=== PATIENT | male | born 1965 | race Caucasian/White ===

== ENCOUNTER 2024-03-09 10:13 | Inpatient (IN) | payer OTHER, SELFPAY ==
[2024-03-09] VITALS (7 sets, daily range): BP systolic 105–148; BP diastolic 62–91; PULSE 84–112; RESP 14–20; TEMP 36.1–36.7; O2SAT 96–100; BMI 30.8; BMI 31.4
[2024-03-09 11:20] LABS: Absolute Lymphocyte Count 1.07 X10^3/uL (0.83-4.51); Absolute Neutrophil Count 12.4 X10^3/uL (2.0-7.7); Basophil# 0.04 X10^3/uL; Basophil% 0.3 % (0-1); Eosinophil# 0.02 X10^3/uL; Eosinophils% 0.1 % (0-5); Hematocrit 43.9 % (40-54); Hemoglobin 15.1 g/dL (13.0-16.5); Lymphocyte # 1.07 X10^3/ul (0.83-4.51); Lymphocyte % 7.5 % (19-41); Mean Corp Hgb Conc 34.4 g/dL (32-36); Mean Corpuscular Hgb 30.5 pg (27.0-32.0); Mean Corpuscular Volume 88.7 fL (80-94); Mean Platelet Vol. 11.1 fl (6.2-12.0); Monocyte# 0.77 X10^3/uL; Monocyte% 5.4 % (0-10); NRBC Flagged by Analyzer 0 % (0-5); Neutrophil # 12.39 X10^3/uL (2.7-7.7); Neutrophil % 86.4 % (47-70); Platelet Count 263 K/mm3 (150-450); RBC Distribution Width SD 38.9 fl (35.1-43.9); Red Blood Count 4.95 M/mm3 (4.6-6.2); White Blood Count 14.3 K/mm3 (4.4-11.0)
--- NOTE | 2024-03-09 11:41 | RAD_ITS ---
STUDY: X-RAY - LEFT FOOT CLINICAL: Male, 58 years old. Great toe infection. TECHNIQUE: 3 views of the left foot. COMPARISON: None. FINDINGS: Intact talus, calcaneus, and tarsal bones. There is a tiny posterior calcaneal tuberosity spur. Normal visualized subtalar, talonavicular, calcaneocuboid, tarsal and tarsometatarsal articulations. Normal metatarsi. Normal metatarsophalangeal joint of the great toe. Normal tibial and fibular sesamoid bones. Normal interphalangeal joint of the great toe. Normal phalanges of the great toe. Normal second through fifth metatarsophalangeal joints. Normal interphalangeal joints and phalanges of the lesser toes. The soft tissue structures are unremarkable. There is no demonstrated fracture. RAD/Foot min 3 Views IMPRESSION: Tiny posterior calcaneal tuberosity spur. Electronically Signed: Javier See MD at 12:31 EDT ,
[2024-03-09 11:42] LABS: Anion Gap 5 (5-15); BUN 16 mg/dL (7-18); BUN/Creat Ratio 11.7 RATIO (10-20); Calcium,Total 9.6 mg/dL (8.5-10.1); Chloride 94 mmol/L (98-107); Creatinine, Serum 1.37 mg/dL (0.70-1.30); EST Glomerular Filtration Rate 57 mL/min (>60); Est Glom Filt Rate - Afr Amer 69 mL/min (>60); Estimated Creatinine Clearance 71.74 ml/min; Glucose 651 mg/dL (74-106); Potassium 4.4 mmol/L (3.5-5.1); Sodium Level 128 mmol/L (136-145)
--- NOTE | 2024-03-09 11:42 | EX.ED.DYSGE1 ---
HPI History of Present Illness Chief Complaint: Cellulitis Detail of Chief Complaint: Cellulitis to left leg Informant: patient Narrative Narrative: Patient presents to the emergency department complaint of redness and swelling to his left leg. Patient tells me that 2 months ago he came home from work and noted some blood on his sock and when he pulled his sock off his toenail was barely hanging on so he twisted it and pulled it off. 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 Saucedo for him and keep it clean. About a week ago he started noticing some redness up the foot and up the leg. He was advised to come in and get evaluated. Patient tells me that he has not seen a doctor in over 20 years. 20 years ago he was told he was diabetic and doctor wanted to put him on insulin and he never went back. Denies any other medical history. He has had some chills but no fever. [facility] Home Medications NK 03/09/24 [History Last Taken Unknown] Allergy/AdvReac Type Severity Reaction Status Date / Time No Known Allergies Allergy Verified 03/09/24 10:14 Social History Smoking Status: Never smoker ROS ROS ED Review of Systems ROS Unobtainable: other Constitutional Constitutional ED: Reports lethargy; Denies chills, fever(s), sweats or weight loss Eyes Eyes: Denies blurry vision, change in vision or diplopia ENT ENT ED: Denies rhinorrhea or sore throat Cardiovascular Cardiovascular: Denies chest pain, orthopnea or racing heartbeat Respiratory/Chest Respiratory/Chest: Denies cough, dyspnea, dyspnea on exertion, orthopnea or sputum Gastrointestinal Gastrointestinal: Denies abdominal pain, diarrhea, nausea or vomiting Genitourinary Genitourinary ED: Denies dysuria, hematuria or urinary frequency Musculoskeletal Musculoskeletal: Reports other Details: Right foot redness and swelling ; Denies arthralgias, back pain, myalgias or neck pain Integumentary Denies abscess, Abrasions or rash Neurologic Neurologic: Denies headache(s) or weakness Psychiatric Psychiatric: Denies anxiety, depression or suicidal thoughts Endocrine Endocrinology: Denies polydipsia, polyphagia or polyuria Hematologic/Lymphatic Hematologic/Lymphatic: Denies easy bleeding, easy bruising or lymphadenopathy Allergic/Immunologic Allergic/Immunologic ED: Denies mouth swelling, tongue swelling or urticaria EXAM Physical Exam Const Vital Signs: 03/09/24 10:15 03/09/24 11:16 Temperature 97 F L 97.6 F L Temperature Source Temporal Oral Pulse Rate 112 H 89 Respiratory Rate 18 20 H Blood Pressure 137/77 H 148/67 H Blood Pressure Mean 97 94 Pulse Ox 98 97 Oxygen Delivery Method Room Air Room Air Positive well nourished and well developed General Appearance ED: well developed and NAD HEENT Reports TM's clear and moist mucous membranes normocephalic and atraumatic; Negative for trauma or tenderness Tympanic Membrane ED: Yes TM's clear Eyes PERRL and EOMs intact bilaterally General Eye ED: Negative for pale conjunctiva or scleral icterus Neck no lymphadenopathy, supple and no JVD General: Negative for tenderness Chest Wall inspection of chest normal and palpation of chest normal Chest: Negative for tenderness Resp normal respiratory effort and clear to auscultation bilaterally Effort and Inspection: Negative for respiratory distress or pain with movement Auscultation: Negative for rhonchi, wheezes or diminished lung sounds Cardio regular rate, regular rhythm, S1 normal heart sound, S2 normal heart sound and no murmurs Peripheral Pulses: pulses 2+ throughout GI normal to inspection, nondistended, normoactive bowel sounds, soft to palpation, non-tender, non-distended and no masses Back/Spine no CVA tenderness and no thoracic nor lumbar tenderness Extremity Extremity Narrative: Right lower extremity-patient has a missing left great toenail. He has diffuse erythema to the toe with tenderness to palpation. No significant drainage noted. Does have cellulitic changes to the dorsum of the foot and extending up the anterior rhodes. General Extremety ED: Negative for edema General Extremity: Negative for edema Neuro oriented x3, CN's II-XII intact bilaterally, no sensory deficits noted and gait normal Sensorium / Orientation: awake, alert, oriented to person, oriented to place and oriented to time Motor Exam: strength 5/5 throughout and strength abnormal Psych mental status grossly normal Skin no rashes or lesions noted and no wounds MDM MDM MDM Narrative Medical decision making narrative: Patient presents to the emergency department with redness and swelling to the left great toe and lower extremity. Thinks he might be diabetic. IV line established. CBC with differential obtained for white count of 14.3 with hemoglobin 15 and platelet count of 263. Patient was started on Zosyn and vancomycin IV empirically. I ordered an x-ray. Sed rate and CRP also ordered and pending. Patient has an elevated glucose of 651. Sodium 128. BUN 16 and creatinine 1.37. C-reactive protein was elevated at 67.6. Sed rate was normal at 8. X-ray of the left foot obtained showed no evidence for osteomyelitis or gas within the tissues. Patient started on insulin subcu I gave him 20 units regular. Case discussed with hospitalist will evaluate patient for admission. Lab Data Attestation: I reviewed the patient's lab results. Labs: Laboratory Results - last 24 hr 03/09/24 11:11 WBC 14.3 H RBC 4.95 Hgb 15.1 Hct 43.9 MCV 88.7 MCH 30.5 MCHC 34.4 RDW Std Deviation 38.9 RDW Coeff of [place] 12.0 Plt Count 263 MPV 11.1 Immature Gran % (Auto) 0.300 Neut % (Auto) 86.4 H Lymph % (Auto) 7.5 L [place] % (Auto) 5.4 Eos % (Auto) 0.1 Baso % (Auto) 0.3 Absolute Neuts (auto) 12.4 H Absolute Lymphs (auto) 1.07 Nucleated RBC % 0 ESR 8 Sodium 128 L Potassium 4.4 Chloride 94 L Carbon Dioxide 29.0 Anion Gap 5 BUN 16 Creatinine 1.37 H Estim Creat Clear Calc 71.74 Est GFR (MDRD) Af Amer 69 Est GFR (MDRD) Non-Af 57 L BUN/Creatinine Ratio 11.7 Glucose 651 H* Calcium 9.6 C-React Prot Ext Range 67.60 H Radiography Diagnostic Testing: Clinical Impression(s) from Imaging Studies Foot X-Ray 03/09/24 11:41 IMPRESSION: Tiny posterior calcaneal tuberosity spur. Electronically Signed: Javier See MD at 12:31 EDT , Three-view x-rays of the left foot obtained interpreted by myself as no evidence of fracture dislocation or evidence of osteomyelitis or gas in tissues. Radiology in agreement felt there was a posterior calcaneal tuberosity spur. Discharge Plan Triage Chief Complaint: Cellulitis ED Provider: Reba Soto Dx/Rx/DC Orders Clinical Impression: Cellulitis, Hyperglycemia Prescriptions: No Action NK Primary Care Provider: Care Physician,No Primary Referrals: Angelito Mitchell MD [Med Staff - Batting Machine Operator] - Disposition Disposition: Acute Care Hospital [facility]
[2024-03-09] MEDS: Insulin Lispro 100 UNIT/ML INSULN.PEN 20 UNIT SC (12:05)
[2024-03-09 12:14] LABS: Erythrocyte Sedimentation Rate 8 mm/hr (0-20)
[2024-03-09] MEDS: Piperacil/Tazobactam 4.5 GM in 0.9% Normal Saline (100mL MB+) 100 ML IV (13:39)
[2024-03-09] MEDS: Vancomycin HCl 1,500 MG in 0.9% Normal Saline (500mL Bag) 500 ML 250 MG IV (14:24)
[2024-03-09 15:56] LABS: Bedside Glucose 189 mg/dL (74-106)
[2024-03-09] MEDS: 0.9% Normal Saline (1000mL) 1,000 ML 100 ML IV (17:07)
[2024-03-09 17:29] LABS: Bedside Glucose 142 mg/dL (74-106)
[2024-03-09] MEDS: Insulin Lispro 100 UNIT/ML INSULN.PEN 12 UNIT SC (18:03)
[2024-03-09] MEDS: Insulin Glargine-YFGN 100 UNIT/ML Pen 20 UNIT SC ×2 (18:04→21:07)
--- NOTE | 2024-03-09 19:48 | HP.PCM.HOS_ITS ---
HPI - General General Date of Admission: 03/09/24 Date of Service: 03/09/24 Chief Complaint: Left foot and lower leg redness HPI Narrative LIAN FRYE, is a 58 M who presents to the emergency room at [facility] with complaints of redness and swelling to his left great toe, his left foot and redness streaking up the left lower leg. 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 Patient does not follow-up regularly with a physician, he was diagnosed with diabetes years ago but chose not to go on any medication. Workup in the emergency room included a CBC which showed an elevated white blood cell count of 14.3, sodium was low at 128, creatinine was elevated at 1.37, glucose was elevated at 651, and foot x-ray showed a calcaneal tuberosity spur but no other abnormality. Patient will be admitted to [facility] for cellulitis of the left great toe/foot, he will be treated with IV Zosyn, I will have the wound nurse look at his toe wound tomorrow, I do not anticipate having podiatry involved in the case at this time. [facility] Medical History (Updated 03/09/24 @ 16:15 by Dannielle River) Alcohol abuse Diabetes Dyspnea History of stress test Home Medications NK 03/09/24 [History Last Taken Unknown] Allergy/AdvReac Type Severity Reaction Status Date / Time No Known Allergies Allergy Verified 03/09/24 10:14 Social History Smoking Status: Never smoker ROS ROS Narrative Patient complains of left great toe redness and swelling over the last several days along with redness of the left foot over its dorsum and streaking redness up into the left lower leg. Constitutional Constitutional: Denies anorexia, change in weight, chills, fatigue, fever(s), night sweats or weakness Eyes Eyes: Denies blurry vision, change in vision, discharge from eye(s) or eye pain Cardiovascular Cardiovascular: Denies chest pain, claudication, edema or palpitations Respiratory/Chest Respiratory/Chest: Denies cough, hemoptysis, shortness of breath at rest or shortness of breath with exertion Gastrointestinal Gastrointestinal: Denies abdominal pain, constipation, diarrhea, hematemesis, hematochezia, melena, nausea or vomiting Genitourinary Genitourinary: Denies dysuria, hematuria, urinary frequency, urinary hesitancy, urinary incontinence or urinary urgency Musculoskeletal Musculoskeletal: Denies back pain, joint pain, joint stiffness, joint swelling, myalgias or neck pain Neurologic Neurologic: Denies abnormal gait, abnormal speech, dizziness, focal weakness, headache(s), loss of vision, numbness, other visual disturbances, paresthesias, syncope or tingling Psychiatric Psychiatric: Denies anxiety, cognitive impairment, depression, irritability, mood swings or suicidal ideation Endocrine Endocrinology: Denies change in body appearance, cold intolerance, excessive sweating, heat intolerance, polydipsia or polyuria Hematologic/Lymphatic Hematologic/Lymphatic: Denies none, anemia, easy bleeding, easy bruising or lymphadenopathy Allergic/Immunologic Allergic/Immunologic: Denies rhinitis, urticaria, eczemia or asthma Vital Signs Vital Signs Vital Signs: 03/09/24 10:15 03/09/24 11:16 03/09/24 13:43 Temperature 97 F L 97.6 F L 98.1 F Temperature Source Temporal Oral Temporal Pulse Rate 112 H 89 84 Respiratory Rate 18 20 H 18 Respiratory Effort Respiratory Depth Respiratory Pattern Blood Pressure 137/77 H 148/67 H 112/64 Blood Pressure Mean 97 94 80 Blood Pressure Source Blood Pressure Position Blood Pressure Location Pulse Ox 98 97 96 Oxygen Delivery Method Room Air Room Air Room Air 03/09/24 14:24 03/09/24 15:00 03/09/24 17:00 Temperature 98.1 F 98.0 F 98.1 F Temperature Source Temporal Oral Pulse Rate 92 91 93 Respiratory Rate 15 15 14 Respiratory Effort Respiratory Depth Respiratory Pattern Blood Pressure 138/62 H 105/91 H 136/81 H Blood Pressure Mean 87 95 99 Blood Pressure Source Monitor Blood Pressure Position Sitting Blood Pressure Location Left Arm Pulse Ox 99 99 100 Oxygen Delivery Method Room Air Room Air 03/09/24 16:03 Temperature Temperature Source Pulse Rate Respiratory Rate Respiratory Effort Normal Respiratory Depth Normal Respiratory Pattern Normal Blood Pressure Blood Pressure Mean Blood Pressure Source Blood Pressure Position Blood Pressure Location Pulse Ox Oxygen Delivery Method Room Air Weight Weight: 102.115 kg Body Mass Index (BMI) 31.4 Physical Exam Const alert, oriented x3, no apparent distress, average body habitus and healthy appearing General Appearance: cooperative, well kempt and well developed Orientation / Consciousness: awake, oriented to person, oriented to place and oriented to time HEENT normocephalic, head/scalp atraumatic and moist oral mucous membranes Eyes PERRL, EOMs intact bilaterally and conjunctivae normal Neck supple, no JVD, thyroid normal and no carotid bruits General: trachea midline Resp normal respiratory effort, no retractions, no use of accessory muscles and clear to auscultation bilaterally Auscultation: Negative for rales, rhonchi or wheezes Cardio S1 normal heart sound, S2 normal heart sound, no murmurs, no rub and no gallops Cardio Narrative: Heart rate and rhythm is regularly irregular GI normal to inspection, nondistended, normoactive bowel sounds, soft to palpation, non-tender and non-distended Extremity Extremity Narrative: There are some chronic vascular changes of the left lower leg noted over the rhodes area, there is generalized tenderness over the back of the left lower leg, there is some edema of the dorsum of the left foot noted, the left great toe was not examined due to surgical dressing which was in place. Neuro oriented x3, CN's II-XII intact bilaterally, moves all extremities, no focal motor deficits and no sensory deficits noted Sensorium / Orientation: awake and alert Speech: speech normal Psych affect normal Results Lab / Micro Data 03/09/24 11:11 03/09/24 11:11 Labs: Laboratory Results - last 24 hr 03/09/24 11:11: WBC 14.3 H, RBC 4.95, Hgb 15.1, Hct 43.9, MCV 88.7, MCH 30.5, MCHC 34.4, RDW Std Deviation 38.9, RDW Coeff of [place]on 12.0, Plt Count 263, MPV 11.1, Immature Gran % (Auto) 0.300, Neut % (Auto) 86.4 H, Lymph % (Auto) 7.5 L, [place] % (Auto) 5.4, Eos % (Auto) 0.1, Baso % (Auto) 0.3, Absolute Neuts (auto) 12.4 H, Absolute Lymphs (auto) 1.07, Nucleated RBC % 0, ESR 8, Sodium 128 L, Potassium 4.4, Chloride 94 L, Carbon Dioxide 29.0, Anion Gap 5, BUN 16, Creatinine 1.37 H, Estim Creat Clear Calc 71.74, Est GFR (MDRD) Af Amer 69, Est GFR (MDRD) Non-Af 57 L, BUN/Creatinine Ratio 11.7, Glucose 651 H*, Calcium 9.6, C-React Prot Ext Range 67.60 H 03/09/24 15:37: POC Glucose 189 H 03/09/24 16:55: POC Glucose 142 H Imaging Radiology Impression Foot X-Ray 03/09/24 11:41 IMPRESSION: Tiny posterior calcaneal tuberosity spur. Electronically Signed: Javier See MD at 12:31 EDT , Assessment & Plan Assessment/Plan (1) Cellulitis: PLAN: Plan 1. Cellulitis of the left great toe/foot with extension into the left lower leg-patient will be maintained on IV Zosyn, he was admitted to [facility] 3, he will be seen by the wound care nurse #2 uncontrolled type 2 diabetes due to noncompliance with medical regimen- patient was placed on insulin, he will be seen by the dietitian, lipid profile was ordered for tomorrow morning #3 cardiac arrhythmia-on auscultation of the patient's heart today he has what appears to this examiner to be either atrial bigeminy or bigeminy, I will place him on telemetry and monitor the patient for now. #4 elevated creatinine probably secondary to dehydration-patient will receive fluids and labs will be rechecked tomorrow Total clinical time spent by myself addressing the patient's medical issues, reviewing all the data, and collaborating with patient's care team: 75 minutes Charges/Coding Visit Charges Inpatient E&M: 25579 Init Hosp L3
[2024-03-09] MEDS: Insulin Lispro 100 UNIT/ML INSULN.PEN SC (21:07)
[2024-03-09] MEDS: Piperacil/Tazobactam 3.375 GM in 0.9% Normal Saline (50mL MB+) 50 ML IV (21:07)
[2024-03-09] MEDS: Heparin Injection (Vial) 5,000 UNIT/ML VIAL 5000 UNIT SC (21:08)
[2024-03-09 22:01] LABS: Bedside Glucose 221 mg/dL (74-106)
[2024-03-10] MEDS: 0.9% Normal Saline (1000mL) 1,000 ML 100 ML IV ×3 (02:26→23:42)
[2024-03-10 03:07] VITALS: BP 128/59; PULSE 84; RESP 18; TEMP 37; O2SAT 96
[2024-03-10] MEDS: Piperacil/Tazobactam 3.375 GM in 0.9% Normal Saline (50mL MB+) 50 ML IV ×3 (07:09→21:02)
[2024-03-10 07:19] LABS: Absolute Lymphocyte Count 1.69 X10^3/uL (0.83-4.51); Absolute Neutrophil Count 8.4 X10^3/uL (2.0-7.7); Basophil# 0.03 X10^3/uL; Basophil% 0.3 % (0-1); Eosinophil# 0.16 X10^3/uL; Eosinophils% 1.4 % (0-5); Hematocrit 41.8 % (40-54); Hemoglobin 14.4 g/dL (13.0-16.5); Lymphocyte # 1.69 X10^3/ul (0.83-4.51); Mean Corp Hgb Conc 34.4 g/dL (32-36); Mean Corpuscular Hgb 30.3 pg (27.0-32.0); Mean Corpuscular Volume 87.8 fL (80-94); Mean Platelet Vol. 11.5 fl (6.2-12.0); Monocyte# 0.92 X10^3/uL; Monocyte% 8.2 % (0-10); NRBC Flagged by Analyzer 0 % (0-5); Neutrophil # 8.44 X10^3/uL (2.7-7.7); Neutrophil % 74.8 % (47-70); Platelet Count 255 K/mm3 (150-450); RBC Distribution Width CV 11.9 % (11.6-14.6); RBC Distribution Width SD 38.5 fl (35.1-43.9); Red Blood Count 4.76 M/mm3 (4.6-6.2); White Blood Count 11.3 K/mm3 (4.4-11.0)
[2024-03-10 07:50] LABS: Anion Gap 6 (5-15); BUN 20 mg/dL (7-18); BUN/Creat Ratio 14.5 RATIO (10-20); Calcium,Total 8.8 mg/dL (8.5-10.1); Chloride 106 mmol/L (98-107); Cholesterol 213 mg/dL (200); Creatinine, Serum 1.38 mg/dL (0.70-1.30); EST Glomerular Filtration Rate 56 mL/min (>60); Est Glom Filt Rate - Afr Amer 68 mL/min (>60); Estimated Creatinine Clearance 71.86 ml/min; Glucose 153 mg/dL (74-106); High Density Lipoprotein 58 mg/dL; Potassium 3.7 mmol/L (3.5-5.1); Sodium Level 138 mmol/L (136-145); Triglycerides 102 mg/dL; Very Low Density Lipoprotein 20 mg/dL (5-40)
[2024-03-10 08:00] VITALS: BP 124/78; PULSE 100; RESP 12; TEMP 36.6; O2SAT 98
[2024-03-10 08:05] LABS: Bedside Glucose 162 mg/dL (74-106)
--- NOTE | 2024-03-10 08:37 | WOUNDNOTE ---
wound photo: left great toe
[2024-03-10] MEDS: Insulin Glargine-YFGN 100 UNIT/ML Pen 20 UNIT SC ×2 (08:46→20:59)
[2024-03-10] MEDS: Insulin Lispro 100 UNIT/ML INSULN.PEN SC (08:47)
[2024-03-10] MEDS: Insulin Lispro 100 UNIT/ML INSULN.PEN 12 UNIT SC ×3 (08:47→16:19)
[2024-03-10] MEDS: Heparin Injection (Vial) 5,000 UNIT/ML VIAL 5000 UNIT SC ×2 (08:48→20:54)
--- NOTE | 2024-03-10 08:57 | MRI_ITS ---
STUDY: MRI LEFT FOREFOOT WITHOUT CONTRAST REASON FOR EXAM: Male, 58 years old. Pulled off 1st digit nail x 3 weeks, great toe appears red and swollen. Evaluate for left foot osteomyelitis. TECHNIQUE: Standardized fat and water weighted pulse sequences were obtained in all 3 orthogonal planes. COMPARISON: Left foot radiographs dated 03/09/2024. FINDINGS: There is a wound at the nailbed of the great toe. There is geographic and curvilinear signal abnormality at the base of the distal phalanx of the great toe (coronal T2 series 11 image 12; sagittal STIR series 10 image 6), concerning for nondisplaced fracture versus avascular necrosis. There is intermediate T1 and increased STIR marrow signal in the middle and distal phalanges of the great toe, concerning for marrow stress edema versus early developing osteomyelitis. Normal bone marrow of the remainder of the phalanges, metatarsals, and and visualized distal tarsal row, without fracture, periostitis, erosions or reactive bone edema. Normal sesamoids without sesamoiditis, fracture or avascular necrosis. Normal joint spaces, without effusions. There are no extraarticular fluid collections. Normal visualized Lisfranc joints and normal Lisfranc ligament. Normal intermetatarsal spaces without intermetatarsal ([place]) neuroma or bursitis. Normal visualized extensor digitorum longus, extensor hallucis longus, flexor digitorum brevis and flexor hallucis longus tendons. Normal visualized plantar fascia without fasciitis, fibromatosis or tear. Normal intrinsic muscles of the foot, without soft tissue masses or evidence of denervation atrophy. There is moderate subcutaneous soft tissue edema along the dorsal aspect of the foot. MRI/Lower Ext/No Jt/w/o IMPRESSION: Great toe nailbed wound. Geographic and curvilinear signal abnormality at the base of the distal phalanx of the great toe, concerning for nondisplaced fracture versus avascular necrosis. Intermediate T1 and increased STIR marrow signal in the middle and distal phalanges of the great toe, concerning for marrow stress edema versus early developing osteomyelitis. Continued follow-up is advised. Moderate subcutaneous soft tissue edema along the dorsal aspect of the foot. Electronically Signed: Javier See MD at 15:55 EDT ,
--- NOTE | 2024-03-10 08:57 | ART_ITS ---
Reason For Study: Left toe ulcer Procedure A bilateral lower extremity continuous wave Doppler with analog waveform analysis,segmental pressures,and ankle brachial indexes without exercise. Left Segmental Pressures Left brachial= 153mmHg. Left posterior tibial artery = >254mmHg. Left dorsalis pedis artery = 184mmHg. The left dorsalis pedis waveforms are triphasic. The left posterior tibial artery waveforms are triphasic. Right Segmental Pressures Right posterior tibial artery = >254mmHg. Right dorsalis pedis artery = 219mmHg. Right digit = 152 mmHg. The right dorsalis pedis waveforms are triphasic. The right posterior tibial artery waveforms are triphasic. Indices The right ankle brachial index by the dorsalis pedis is 1.43. The right ankle brachial index by the posterior tibial artery is NC. The right digital-brachial index is 0.99. The left ankle brachial index by the dorsalis pedis is 1.20. The left ankle brachial index by the posterior tibial artery is NC. VL/Lower Ext Art Exam w/o Exercis Interpretation Summary Right MELO 1.43, artificially elevated. TBI and Doppler/PVR waveforms of the rig ht leg normal at rest. Left MELO 1.2, normal. Doppler/PVR waveforms of the left leg normal at rest. Domi ble to obtain TBI due to dressings. Ordering Physician: Jonah Borjas Performed By: Cem Dumont RVT
--- NOTE | 2024-03-10 09:32 | CASEMGMT ---
JERMAINE HURTADO Assessment: Face to Face with pt for initial transition planning/care coordination assessment. JERMAINE HURTADO introduced self and role at [facility], pt voices understanding and consents to assessment. Pt is A&O x4 and answers all questions appropriately at this time. Pt sitting up in chair in no distress. Care providers, pharmacy, and demographics verified/updated. Admitting Dx: cellulitis of the L great toe PCP:None- provided pt with a local healthcare directory pamphlet and starred the physicians that he could use the [facility] van for. Specialists:Denies Preferred Pharmacy: [facility] Insurance: [employer] Prescription Benefit: yes LNOK: Pt does not have any emergency contacts listed. He states his dtr lives two hours away and declines to list her. He states he has friends but also declines to list them. Living Arrangements: Pt lives alone in a single story apt with no steps to enter. Pt reports he is I in ADL's and works. Pt denies concerns at home. Transportation: Pt does not drive. He states he walks to work and it takes 3 minutes. He uses [employer] or delivery services for groceries. Provided [facility] transportation handout. DME:Denies. Pt is interested in obtaining a BGM. He is aware that JERMAINE HURTADO will provide him with a rx and he can have it filled at his pharmacy. HHC/SNF: Denies hx of Pt states no concerns with going home at time of dc. He states he has friends who are nurses who can provide wound care for him or he can do this himself. Pt states no further concerns/needs. CM to follow. Advised pt to ask CM if any further question/concerns/needs arise, voices understanding. Pt Goal: Home Plan: Home, rx for BGM Tiana DEAN CM
[2024-03-10 10:26] LABS: M R Staph aureus DNA By PCR Negative (Negative); Probe Check PASS; Specimen Processing Control PASS; Staph aureus DNA By PCR NEGATIVE (Negative)
--- NOTE | 2024-03-10 10:55 | CON.PCM_ITS ---
Assessment & Plan Assessment/Plan (1) Other specified peripheral vascular diseases: PLAN: Exam performed radiograph negative for obvious osteomyelitis MRI ordered for further work up of osteomyelitis Arterial studies ordered for vascular base line I have recommended left hallux amputation - will plan for tomorrow 03/11/24. recommend betadine/DSD daily recommend heel weightbearing in surgical shoe to heel patient receiving iv vanc/zosyn will follow closely will hold heparin at midnight (2) Type 2 diabetes mellitus with diabetic polyneuropathy: (3) Other acute osteomyelitis, left ankle and foot: (4) Non-pressure chronic ulcer of other part of left foot with necrosis of bone: HPI Consult Data Date of Consult: 03/10/24 HPI Narrative HPI Narrative: LIAN FRYE, is a 58 M who presents with left hallux infection in setting of poorly controlled type II diabetes. Patient notes wound to left hallux, progressively worsening and darkening with foul smelling drainage. Patient denies pain to left hallux. Patient denies fever, chills, nausea, vomiting, chest pain, calf pain or shortness of breath. Patient denies any treatment to wound. Patient denies taking any medication for his diabetes. Patient has no other complaints. [facility] Medical History (Updated 03/10/24 @ 11:[address] Jonah Borjas DPM) Dyspnea History of stress test Alcohol abuse Diabetes Home Medications ?Medication ?Instructions ?Recorded ?Last Taken ?Type NK 03/09/24 Unknown History Allergy/AdvReac Type Severity Reaction Status Date / Time No Known Allergies Allergy Verified 03/09/24 10:14 Social History Smoking Status: Never smoker ROS Constitutional Constitutional: Denies change in weight, chills or headache(s) Eyes Eyes: Denies acute decrease in peripheral vision, change in eye color or change in vision ENT HEENT: Denies bleeding gums, change in voice or ear pain Cardiovascular Cardiovascular: Denies abdominal edema, abdominal pain or chest pain at rest Respiratory/Chest Respiratory/Chest: Denies change in phlegm color, chest congestion or dyspnea Physical Exam Narrative Vascular: Atrophic skin changes, shiny taut appearance with absent pedal hair gorwth to biltateral legs. Palpable DP/PT pulses. Wamrth and pitting edema to left foot. Neurologic: light touch/protective sensation absent to bilateral feet. dermatologic: full thickness wound to dorsal left hallux with full thickness tissue necrosis to bone. significant wound drainage noted with malodor, erythema, edema, warmth. appears limited to left hallux. Musculoskeletal: no wound forming deformity noted. muscular strength full. no sign of dvt bilaterally. Lab / Micro Data 03/10/24 06:10 03/10/24 06:10 Labs: Laboratory Results - last 24 hr 03/09/24 11:11: WBC 14.3 H, RBC 4.95, Hgb 15.1, Hct 43.9, MCV 88.7, MCH 30.5, MCHC 34.4, RDW Std Deviation 38.9, RDW Coeff of [place] 12.0, Plt Count 263, MPV 11.1, Immature Gran % (Auto) 0.300, Neut % (Auto) 86.4 H, Lymph % (Auto) 7.5 L, [place] % (Auto) 5.4, Eos % (Auto) 0.1, Baso % (Auto) 0.3, Absolute Neuts (auto) 12.4 H, Absolute Lymphs (auto) 1.07, Nucleated RBC % 0, ESR 8, Sodium 128 L, Potassium 4.4, Chloride 94 L, Carbon Dioxide 29.0, Anion Gap 5, BUN 16, C reatinine 1.37 H, Estim Creat Clear Calc 71.74, Est GFR (MDRD) Af Amer 69, Est GFR (MDRD) Non-Af 57 L, BUN/Creatinine Ratio 11.7, Glucose 651 H*, Calcium 9.6, C-React Prot Ext Range 67.60 H 03/09/24 15:37: POC Glucose 189 H 03/09/24 16:55: POC Glucose 142 H 03/09/24 21:06: POC Glucose 221 H 03/10/24 06:10: WBC 11.3 H, RBC 4.76, Hgb 14.4, Hct 41.8, MCV 87.8, MCH 30.3, MCHC 34.4, RDW Std Deviation 38.5, RDW Coeff of [place] 11.9, Plt Count 255, MPV 11.5, Immature Gran % (Auto) 0.300, Neut % (Auto) 74.8 H, Lymph % (Auto) 15.0 L, [place] % (Auto) 8.2, Eos % (Auto) 1.4, Baso % (Auto) 0.3, Absolute Neuts (auto) 8.4 H, Absolute Lymphs (auto) 1.69, Nucleated RBC % 0, Sodium 138, Potassium 3.7, Chloride 106, Carbon Dioxide 26.0, Anion Gap 6, BUN 20 H, Creatinine 1.38 H , Estim Creat Clear Calc 71.86, Est GFR (MDRD) Af Amer 68, Est GFR (MDRD) Non-Af 56 L, BUN/Creatinine Ratio 14.5, Glucose 153 H, Calcium 8.8, Triglycerides 102, Cholesterol 213 H, LDL Cholesterol 135 H, VLDL Cholesterol 20, HDL Cholesterol 58 03/10/24 07:40: POC Glucose 162 H 03/10/24 07:45: S.aureus Protein A PCR NEGATIVE, MRSA (PCR) Negative Imaging Radiology Impression Foot X-Ray 03/09/24 11:41 IMPRESSION: Tiny posterior calcaneal tuberosity spur. Electronically Signed: Javier See MD at 12:31 EDT ,
[2024-03-10 12:34] LABS: Bedside Glucose 148 mg/dL (74-106)
[2024-03-10 14:00] VITALS: BP 155/81; PULSE 96; RESP 13; TEMP 37; O2SAT 99
[2024-03-10] MEDS: 0.9% Saline Lock 10 ML Syringe IV (16:09)
[2024-03-10 17:45] LABS: Bedside Glucose 146 mg/dL (74-106)
--- NOTE | 2024-03-10 18:48 | PN.HOSP_ITS ---
Reason for Visit Reason for Visit: Diagnoses Type 2 diabetes mellitus with diabetic polyneuropathy (03/09/24) Other specified peripheral vascular diseases (03/09/24) Cellulitis, unspecified (03/09/24) Non-pressure chronic ulcer of other part of left foot with necrosis of bone (03/09/24) Other acute osteomyelitis, left ankle and foot (03/09/24) Subjective Subjective Patient was seen and examined today, he was seen by podiatry, podiatry has not decided what course to take regarding his left great toe infection. Patient remains on IV antibiotics at this time, his blood sugar has improved Objective Data Objective Data Vital Signs: Vital Signs Temp Pulse Resp BP Pulse Ox O2 Del Method 98.6 F 96 13 155/81 H 99 Room Air 03/10/24 14:00 03/10/24 14:00 03/10/24 14:00 03/10/24 14:00 03/10/24 14:00 03/10/24 14:00 Oxygen Delivery Method Room Air Weight: 102.115 kg Body Mass Index (BMI) 31.4 Intake & Output: Intake and Output for Last 24 Hours 03/08/24 03/09/24 03/10/24 23:59 23:59 23:59 Intake Total 630 / 630 Balance 630 / 630 Lab / Micro Data 03/10/24 06:10 03/10/24 06:10 Labs: Laboratory Results - last 24 hr 03/09/24 21:06: POC Glucose 221 H 03/10/24 06:10: WBC 11.3 H, RBC 4.76, Hgb 14.4, Hct 41.8, MCV 87.8, MCH 30.3, MCHC 34.4, RDW Std Deviation 38.5, RDW Coeff of Weston 11.9, Plt Count 255, MPV 11.5, Immature Gran % (Auto) 0.300, Neut % (Auto) 74.8 H, Lymph % (Auto) 15.0 L, [place] % (Auto) 8.2, Eos % (Auto) 1.4, Baso % (Auto) 0.3, Absolute Neuts (auto) 8.4 H, Absolute Lymphs (auto) 1.69, Nucleated RBC % 0, Sodium 138, Potassium 3.7, Chloride 106, Carbon Dioxide 26.0, Anion Gap 6, BUN 20 H, Creatinine 1.38 H , Estim Creat Clear Calc 71.86, Est GFR (MDRD) Af Amer 68, Est GFR (MDRD) Non-Af 56 L, BUN/Creatinine Ratio 14.5, Glucose 153 H, Hemoglobin A1c 13.0 H, Calcium 8.8, Triglycerides 102, Cholesterol 213 H, LDL Cholesterol 135 H, VLDL Cholesterol 20, HDL Cholesterol 58 03/10/24 07:40: POC Glucose 162 H 03/10/24 07:45: S.aureus Protein A PCR NEGATIVE, MRSA (PCR) Negative 03/10/24 11:47: POC Glucose 148 H 03/10/24 16:16: POC Glucose 146 H Radiography Diagnostic Testing: Radiology Impression Lower Extremity MRI 03/10/24 08:57 IMPRESSION: Great toe nailbed wound. Geographic and curvilinear signal abnormality at the base of the distal phalanx of the great toe, concerning for nondisplaced fracture versus avascular necrosis. Intermediate T1 and increased STIR marrow signal in the middle and distal phalanges of the great toe, concerning for marrow stress edema versus early developing osteomyelitis. Continued follow-up is advised. Moderate subcutaneous soft tissue edema along the dorsal aspect of the foot. Electronically Signed: Javier See MD at 15:55 EDT , Physical Exam Narrative alert, oriented x3, no apparent distress, average body habitus and healthy appearing General Appearance: cooperative, well kempt and well developed Orientation / Consciousness: awake, oriented to person, oriented to place and oriented to time HEENT normocephalic, head/scalp atraumatic and moist oral mucous membranes Eyes PERRL, EOMs intact bilaterally and conjunctivae normal Neck supple, no JVD, thyroid normal and no carotid bruits General: trachea midline Resp normal respiratory effort, no retractions, no use of accessory muscles and clear to auscultation bilaterally Auscultation: Negative for rales, rhonchi or wheezes Cardio S1 normal heart sound, S2 normal heart sound, no murmurs, no rub and no gallops Cardio Narrative: Heart rate and rhythm is regularly irregular GI normal to inspection, nondistended, normoactive bowel sounds, soft to palpation, non-tender and non-distended Extremity Extremity Narrative: There are some chronic vascular changes of the left lower leg noted over the rhodes area, there is generalized tenderness over the back of the left lower leg, there is some edema of the dorsum of the left foot noted, the left great toe was not examined due to surgical dressing which was in place. Neuro oriented x3, CN's II-XII intact bilaterally, moves all extremities, no focal motor deficits and no sensory deficits noted Sensorium / Orientation: awake and alert Speech: speech normal Psych affect normal Assessment & Plan Assessment/Plan (1) Cellulitis: PLAN: Plan 1. Cellulitis of the left great toe/foot with extension into the left lower leg-patient will be maintained on IV Zosyn, podiatry is participating in his care #2 uncontrolled type 2 diabetes due to noncompliance with medical regimen- patient was placed on insulin, he will be seen by the dietitian #3 cardiac arrhythmia-multifocal PVCs-patient will be monitored on telemetry #4 elevated creatinine probably secondary to dehydration-patient will receive fluids and labs will be rechecked tomorrow #5 hyperlipidemia-patient will be placed on Lipitor Total clinical time spent by myself addressing the patient's medical issues, reviewing all the data, and collaborating with patient's care team: 50 minutes Charges/Coding Visit Charges Inpatient E&M: 78478 Subs Hosp L3
[2024-03-10 20:30] VITALS: BP 132/50; PULSE 84; RESP 16; TEMP 36.9; O2SAT 99
[2024-03-10] MEDS: Atorvastatin Calcium 40 MG Tablet PO (20:54)
[2024-03-10 21:40] LABS: Bedside Glucose 147 mg/dL (74-106)
[2024-03-11] VITALS (8 sets, daily range): BP systolic 123–157; BP diastolic 66–89; PULSE 75–91; RESP 16–18; TEMP 36.2–36.9; O2SAT 95–100; BMI 31.4
--- NOTE | 2024-03-11 05:55 | EKG12_ITS ---
Test Reason : AM EKG Blood Pressure : / mmHG Vent. Rate : 092 BPM Atrial Rate : 092 BPM P-R Int : 142 ms QRS Dur : 082 ms QT Int : 362 ms P-R-T Axes : 063 -15 041 degrees QTc Int : 447 ms Normal sinus rhythm Normal ECG When compared with ECG of 11-JUN-2001 08:46, Vent. rate has increased BY 42 BPM Confirmed by Audi Ewing ([id number]), graphics editor GAYLE KEITH ([id number]) on 03/16/2024 9:24:30 AM Referred By: PEDRO Confirmed By:Audi Ewing
[2024-03-11 06:24] LABS: Absolute Lymphocyte Count 1.64 X10^3/uL (0.83-4.51); Absolute Neutrophil Count 7.5 X10^3/uL (2.0-7.7); Basophil# 0.04 X10^3/uL; Basophil% 0.4 % (0-1); Eosinophil# 0.19 X10^3/uL; Eosinophils% 1.9 % (0-5); Hematocrit 40.5 % (40-54); Lymphocyte # 1.64 X10^3/ul (0.83-4.51); Lymphocyte % 16.2 % (19-41); Mean Corp Hgb Conc 34.6 g/dL (32-36); Mean Corpuscular Hgb 30.3 pg (27.0-32.0); Mean Corpuscular Volume 87.7 fL (80-94); Mean Platelet Vol. 10.5 fl (6.2-12.0); Monocyte# 0.79 X10^3/uL; Monocyte% 7.8 % (0-10); NRBC Flagged by Analyzer 0 % (0-5); Neutrophil # 7.45 X10^3/uL (2.7-7.7); Neutrophil % 73.4 % (47-70); Platelet Count 234 K/mm3 (150-450); RBC Distribution Width CV 12.1 % (11.6-14.6); Red Blood Count 4.62 M/mm3 (4.6-6.2); White Blood Count 10.1 K/mm3 (4.4-11.0)
[2024-03-11] MEDS: Piperacil/Tazobactam 3.375 GM in 0.9% Normal Saline (50mL MB+) 50 ML IV ×3 (06:40→21:45)
[2024-03-11 06:43] LABS: Bedside Glucose 173 mg/dL (74-106)
[2024-03-11 06:48] LABS: International Normalized Ratio 1.2; Partial Thromboplast Time 29.9 Seconds (24.1-36.2); Prothrombin Time (Protime)PT. 14.7 SECONDS (11.7-14.9)
[2024-03-11 06:49] LABS: AST(SGOT) 15 U/L (15-37); Alanine Aminotransfer ALT/SGPT 16 U/L (16-61); Albumin, Serum 2.7 g/dL (3.2-5.0); Alkaline Phosphatase 32 U/L (45-117); Anion Gap 6 (5-15); BUN 17 mg/dL (7-18); BUN/Creat Ratio 13.2 RATIO (10-20); Bilirubin, Direct 0.17 mg/dL (0.00-0.30); Calcium,Total 8.9 mg/dL (8.5-10.1); Chloride 109 mmol/L (98-107); Creatinine, Serum 1.29 mg/dL (0.70-1.30); EST Glomerular Filtration Rate 61 mL/min (>60); Est Glom Filt Rate - Afr Amer 74 mL/min (>60); Estimated Creatinine Clearance 76.88 ml/min; Globulin 4.3 g/dL (2.2-4.2); Glucose 188 mg/dL (74-106); Potassium 3.9 mmol/L (3.5-5.1); Sodium Level 138 mmol/L (136-145)
[2024-03-11 08:17] LABS: Bedside Glucose 191 mg/dL (74-106)
[2024-03-11 08:17] LABS: Hemoglobin A1c 12.8 % (3.8-5.6)
--- NOTE | 2024-03-11 08:42 | WOUNDNOTE ---
dressing intact to the left foot. plan is for surgery later today. pt states he is hoping to go home and think about it and then will come back to the hospital. will let Dr Borjas know.
[2024-03-11 12:05] LABS: Bedside Glucose 196 mg/dL (74-106)
[2024-03-11] MEDS: 0.9% Normal Saline (1000mL) 1,000 ML 15 ML IV (12:40)
--- NOTE | 2024-03-11 14:00 | RAD_ITS ---
HISTORY: PAIN. Fluoroscopic support for partial first ray amputation COMPARISON: Foot radiograph March 09, 2024 TECHNIQUE: A total of 1 fluoroscopic images were saved without a radiologist present. FINDINGS: Images demonstrate amputation of the first metatarsophalangeal joint with postsurgical subcutaneous soft tissue emphysema. Total fluoroscopy time: 1 cm Cumulative air kerma: 0.0034 mGy RAD/Foot 2 Views IMPRESSION: Fluoroscopic assistance for first digit amputation at the metatarsophalangeal joint. Please see operative report for additional information. Electronically Signed: Gael Grijalva MD at 20:37 EDT ,
[2024-03-11] MEDS: Bupivacaine Mpf 0.5% 30 ML VIAL (14:10)
--- NOTE | 2024-03-11 15:18 | PCM.OPRPT ---
Problems Associated Problem List Diagnoses (1) Non-pressure chronic ulcer of other part of left foot with necrosis of bone: (2) Other acute osteomyelitis, left ankle and foot: (3) Type 2 diabetes mellitus with diabetic polyneuropathy: Report of Operation Date of Procedure: 03/11/24 Pre-Operative Diagnosis: 1) Left Hallux Osteomyelitis Post-Operative Diagnosis: Same Surgery/Procedure Performed:: Left hallux amputation at [facility] Description of Surgical Findings:: Patient admitted for left hallux white gangrene and acute diabetic foot infection. MRI confirmed osteomyelitis distal proximal phalanx. Recommended hallux amputation patient and patient wished to proceed. Arterial studies demonstrated adequate blood flow to left lower extremity. Surgeon: Jonah Borjas bait tier: None Type of Anesthesia: MAC Special Medications: 30cc 0.5% marcaine plain Specimen's removed: left hallux bone and tissue culture Drains: none Estimated Blood Loss (mL): minimal Description of Procedure: Patient brought back the operating placed comfortably in supine position. Patient induced under MAC anesthesia. All osseous prominences offloaded prevent any compression neuropraxia's. Left well-padded left leg ankle tourniquet applied. Left lower extremity scrubbed prepped and draped using typical aseptic fashion. Once cleared by anesthesia a dorsal rec incision lateral approach was drawn and made with a 10 blade down to full-thickness down to level bone through epidermis dermis and subcutaneous tissue down to level bone. The hallux was then disarticulated at the level of the metatarsal phalangeal joint. Moderate bleeding noted to the incisional site. Additional debridement is performed with bone rongeurs of any nonviable necrotic tissue. No residual evidence of deep purulence or acute deep tissue breakdown. Site was pulse lavage with low-pressure pulse lavage using 3 L of normal sterile saline. Post lavage swab cultures were taken. Left hallux was passed back table and sent to microbiology for bone and tissue culture. Incisional site was closed primarily using simple interrupted 3-0 nylon. Site was dressed with Betadine Adaptic 4 x 4's Kerlix Cliff bandage. Patient will be transferred back to floor continue to receive IV antibiotics. Patient tolerated procedure and anesthesia well apparent satisfactory condition. No complications Findings there is some diminished bleeding to incisional site. Will keep an eye incision consider vascular referral if need be. Admit VTE Documentation VTE Mechan Device Prophylaxis: SCD's
--- NOTE | 2024-03-11 16:14 | PN.HOSP_ITS ---
Reason for Visit Reason for Visit: Diagnoses Type 2 diabetes mellitus with diabetic polyneuropathy (03/09/24) Other specified peripheral vascular diseases (03/09/24) Cellulitis, unspecified (03/09/24) Non-pressure chronic ulcer of other part of left foot with necrosis of bone (03/09/24) Other acute osteomyelitis, left ankle and foot (03/09/24) Subjective Subjective Patient was seen and examined today, he underwent a left hallux amputation at the metatarsal phalangeal joint. There were no complications. Patient was seen before surgery, he had no complaints to this examiner. Objective Data Objective Data Vital Signs: Vital Signs Temp Pulse Resp BP Pulse Ox O2 Del Method 97.6 F L 85 16 139/66 H 96 Room Air 03/11/24 16:07 03/11/24 16:07 03/11/24 16:07 03/11/24 16:07 03/11/24 16:07 03/11/24 16:07 Oxygen Delivery Method Room Air Weight: 102.149 kg Body Mass Index (BMI) 31.4 Intake & Output: Intake and Output for Last 24 Hours 03/09/24 03/10/24 03/11/24 23:59 23:59 23:59 Intake Total 630 / 630 3021.67 / 3021.67 106.04 / 106.04 Balance 630 / 630 3021.67 / 3021.67 106.04 / 106.04 Lab / Micro Data 03/11/24 06:11 03/11/24 06:11 Labs: Laboratory Results - last 24 hr 03/10/24 16:16: POC Glucose 146 H 03/10/24 20:59: POC Glucose 147 H 03/11/24 06:06: POC Glucose 173 H 03/11/24 06:11: WBC 10.1, RBC 4.62, Hgb 14.0, Hct 40.5, MCV 87.7, MCH 30.3, MCHC 34.6, RDW Std Deviation 39.0, RDW Coeff of [place] 12.1, Plt Count 234, MPV 10.5, Immature Gran % (Auto) 0.300, Neut % (Auto) 73.4 H, Lymph % (Auto) 16.2 L, [place] % (Auto) 7.8, Eos % (Auto) 1.9, Baso % (Auto) 0.4, Absolute Neuts (auto) 7.5, Absolute Lymphs (auto) 1.64, Nucleated RBC % 0, PT 14.7, INR 1.2, APTT 29.9, Sodium 138, Potassium 3.9, Chloride 109 H, Carbon Dioxide 23.0, Anion Gap 6, BUN 17, Creatinine 1.29, Estim Creat Clear Calc 76.88, Est GFR (MDRD) Af Amer 74, Est GFR (MDRD) Non-Af 61, BUN/Creatinine Ratio 13.2, Glucose 188 H, Hemoglobin A1c 12.8 H, Calcium 8.9, Total Bilirubin 0.50, Direct Bilirubin 0.17, AST 15, ALT 16, Alkaline Phosphatase 32 L, Total Protein 7.0, Albumin 2.7 L, Globulin 4.3 H 03/11/24 07:50: POC Glucose 191 H 03/11/24 11:13: POC Glucose 196 H Micro: Microbiology 03/09/24 11:11 Blood Culture (Wb) - Anticubital Right Blood Culture - Preliminary No growth in 48 hours. 03/10/24 07:45 Wound - Toe Gram Stain - Final 03/10/24 07:45 Wound - Toe Wound Culture - Preliminary Beta streptococcus 03/09/24 11:57 Blood Culture (Wb) - Anticubital Left Blood Culture - Preliminary Physical Exam Narrative alert, oriented x3, no apparent distress, average body habitus and healthy appearing General Appearance: cooperative, well kempt and well developed Orientation / Consciousness: awake, oriented to person, oriented to place and oriented to time HEENT normocephalic, head/scalp atraumatic and moist oral mucous membranes Eyes PERRL, EOMs intact bilaterally and conjunctivae normal Neck supple, no JVD, thyroid normal and no carotid bruits General: trachea midline Resp normal respiratory effort, no retractions, no use of accessory muscles and clear to auscultation bilaterally Auscultation: Negative for rales, rhonchi or wheezes Cardio S1 normal heart sound, S2 normal heart sound, no murmurs, no rub and no gallops Cardio Narrative: Heart rate and rhythm is regularly irregular GI normal to inspection, nondistended, normoactive bowel sounds, soft to palpation, non-tender and non-distended Extremity Extremity Narrative: There are some chronic vascular changes of the left lower leg noted over the rhodes area, there is generalized tenderness over the back of the left lower leg, there is some edema of the dorsum of the left foot noted, the left great toe was not examined due to surgical dressing which was in place. Neuro oriented x3, CN's II-XII intact bilaterally, moves all extremities, no focal motor deficits and no sensory deficits noted Sensorium / Orientation: awake and alert Speech: speech normal Psych affect normal Assessment & Plan Assessment/Plan (1) Cellulitis: PLAN: Plan 1. Cellulitis and osteomyelitis of the left great toe/foot with extension into the left lower leg-patient will be maintained on IV Zosyn, podiatry is participating in his care, again patient underwent a left hallux amputation at the metatarsal phalangeal joint today. #2 uncontrolled type 2 diabetes due to noncompliance with medical regimen- patient was placed on insulin, he will be seen by the dietitian #3 cardiac arrhythmia-multifocal PVCs-patient will be monitored on telemetry #4 elevated creatinine probably secondary to dehydration-patient will receive fluids and labs will be rechecked tomorrow #5 hyperlipidemia-patient will be placed on Lipitor Total clinical time spent by myself addressing the patient's medical issues, reviewing all the data, and collaborating with patient's care team: 35 minutes Charges/Coding Visit Charges Inpatient E&M: 07763 Subs Hosp L2
[2024-03-11] MEDS: 0.9% Normal Saline (1000mL) 1,000 ML 100 ML IV (16:21)
[2024-03-11 16:53] LABS: Bedside Glucose 185 mg/dL (74-106)
[2024-03-11] MEDS: Insulin Lispro 100 UNIT/ML INSULN.PEN 12 UNIT SC (17:29)
[2024-03-11] MEDS: Insulin Lispro 100 UNIT/ML INSULN.PEN SC (17:29)
[2024-03-11] MEDS: Atorvastatin Calcium 40 MG Tablet PO (21:41)
[2024-03-11] MEDS: Insulin Glargine-YFGN 100 UNIT/ML Pen 20 UNIT SC (21:42)
[2024-03-11] MEDS: Heparin Injection (Vial) 5,000 UNIT/ML VIAL 5000 UNIT SC (21:42)
[2024-03-11 22:36] LABS: Bedside Glucose 140 mg/dL (74-106)
[2024-03-12] MEDS: 0.9% Normal Saline (1000mL) 1,000 ML 100 ML IV (01:58)
[2024-03-12 02:35] VITALS: BP 133/67; PULSE 85; RESP 16; TEMP 36.6; O2SAT 94
[2024-03-12] MEDS: Piperacil/Tazobactam 3.375 GM in 0.9% Normal Saline (50mL MB+) 50 ML IV (06:05)
[2024-03-12 07:55] LABS: Bedside Glucose 120 mg/dL (74-106)
[2024-03-12] MEDS: Insulin Lispro 100 UNIT/ML INSULN.PEN 12 UNIT SC ×2 (08:32→12:01)
[2024-03-12 09:00] VITALS: BP 135/59; PULSE 87; RESP 16; TEMP 37; O2SAT 97
[2024-03-12] MEDS: Insulin Glargine-YFGN 100 UNIT/ML Pen 20 UNIT SC (09:11)
[2024-03-12] MEDS: Heparin Injection (Vial) 5,000 UNIT/ML VIAL 5000 UNIT SC (09:11)
--- NOTE | 2024-03-12 09:47 | WOUNDNOTE ---
wound photo: left foot
--- NOTE | 2024-03-12 09:48 | WOUNDNOTE ---
wound photo: left foot
--- NOTE | 2024-03-12 09:55 | CASEMGMT ---
JERMAINE HURTADO into pt room, pt sitting up in chair in no distress. Provided pt with script for glucometer with testing supplies and discussed going home with insulin. Pt stated he was given training from nurse on how to use glucometer and giving insulin shots to self. Pt stated concerned with how he will pay for supplies and medication. JERMAINE HURTADO informed pt about [employer] glucometer and supplies at [facility] if his insurance does not cover glucometer and supplies or is greater than $30. This information placed on DC instructions for pt. Updated SW and requested that they speak with him regarding medication assistance programs. Pt stated friend is getting him a knee scooter and will be available to him upon dc. Pt states he was given instruction from international marketing manager and was provided handouts. Pt states he has good support at home to help with any needs.
--- NOTE | 2024-03-12 11:24 | CASEMGMT ---
Social Work SW spoke w/pt in regard to his insurance and medication coverage. SW gave pt resources, including information for [employer], [employer], [employer], and prescription assistance programs. Pt showed SW his insurance card, he has medication coverage, it shows copays of $35 for generic. Pt plans to get his medications at [facility]. SW available should any additional social service needs arise. ISABEL Monroe
--- NOTE | 2024-03-12 11:39 | PN_ITS ---
Subjective Subjective 58M denies pain constitutional. No changes overnight. Voiding urine passing gas. Compliant with nonweightbearing. Objective Data Objective Data Vital Signs: Vital Signs Temp Pulse Resp BP Pulse Ox O2 Del Method 98.6 F 87 16 135/59 H 97 Room Air 03/12/24 09:00 03/12/24 09:00 03/12/24 09:00 03/12/24 09:00 03/12/24 09:00 03/12/24 09:03 Oxygen Delivery Method Room Air Weight: 102.149 kg Body Mass Index (BMI) 31.4 Intake & Output: Intake and Output for Last 24 Hours 03/10/24 03/11/24 03/12/24 23:59 23:59 23:59 Intake Total 3021.67 / 3021.67 1406.04 / 1406.04 1271.67 / 1271.67 Output Total 500 / 500 Balance 3021.67 / 3021.67 1406.04 / 1406.04 771.67 / 771.67 Lab / Micro Data 03/11/24 06:11 03/11/24 06:11 Labs: Laboratory Results - last 24 hr 03/11/24 11:13: POC Glucose 196 H 03/11/24 15:59: POC Glucose 185 H 03/11/24 21:40: POC Glucose 140 H 03/12/24 07:35: POC Glucose 120 H Micro: Microbiology 03/11/24 Unknown Tissue - Toe Gram Stain - Final 03/11/24 Unknown Tissue - Toe Wound Culture - Preliminary Streptococcus group B 03/11/24 Unknown Bone - Toe Gram Stain - Final 03/11/24 Unknown Bone - Toe Wound Culture - Preliminary Streptococcus group B 03/11/24 Unknown Incision/Surgical Site Gram Stain - Final 03/11/24 Unknown Incision/Surgical Site Wound Culture - Preliminary Gram positive organism 03/09/24 11:57 Blood Culture (Wb) - Anticubital Left Blood Culture - Preliminary Anaerobic cocci 03/10/24 07:45 Wound - Toe Gram Stain - Final 03/10/24 07:45 Wound - Toe Wound Culture - Final Streptococcus agalactiae (B) 03/09/24 11:11 Blood Culture (Wb) - Anticubital Right Blood Culture - Preliminary No growth in 48 hours. Radiography Diagnostic Testing: Radiology Impression Extremity Arterial Study 03/10/24 08:57 Interpretation Summary Right MELO 1.43, artificially elevated. TBI and Doppler/PVR waveforms of the right leg normal at rest. Left MELO 1.2, normal. Doppler/PVR waveforms of the left leg normal at rest. Unable to obtain TBI due to dressings. Ordering Physician: Jonah Borjas Performed By: Cem Dumont, RVT Foot X-Ray 03/11/24 14:00 IMPRESSION: Fluoroscopic assistance for first digit amputation at the metatarsophalangeal joint. Please see operative report for additional information. Electronically Signed: Gael Grijalva MD at 20:37 EDT , Physical Exam Narrative Neurovascular status unchanged Incision to the left hallux amputation site well-approximated with intact sutures. Mild william-incisional erythema edema warmth. No evidence DVT. Const alert and oriented x3 Assessment & Plan Assessment/Plan (1) Other acute osteomyelitis, left ankle and foot: PLAN: Exam performed. Incisional site intact today. Redressed with Betadine Adaptic 4 x 4 Kerlix and lightly wrapped Cliff bandage. Patient maintain nonweightbearing to left lower extremity. Patient follow-up in 1 week he will keep dressing clean dry and intact. Bone and tissue cultures positive for strep agalactiae. Patient will be discharged on Augmentin. I will personally follow cultures and sensitivities in the outpatient basis. Patient is stable for discharge from podiatry standpoint. (2) Type 2 diabetes mellitus with diabetic polyneuropathy: QUALIFIERS: Diabetes mellitus intermediate insulin use: without intermediate use Qualified Code(s): E11.42 - Type 2 diabetes mellitus with diabetic polyneuropathy
--- NOTE | 2024-03-12 11:53 | PCM.DC ---
Discharge Instructions Diet Discharge Diet: 1800 Calorie Control Diet Activity Discharge Activity: Use Walker (Use knee walker if possible) and - (Nonweightbearing on left forefoot) Follow Up Care Test Results: Test results from this visit will be discussed in further detail at your follow-up appointment, if applicable. Discharge Plan Admission Admit Date/Time: 03/09/24 13:03 Primary Reason for Your Visit: Osteomyelitis of the left great toe, cellulitis of the left toe and foot Attending Provider: Rj Morin Primary Care Provider: Care Physician,No Primary Consulting Providers: Jonah Borjas Instructions Additional Instructions / Restrictions: Patient keep dressing clean dry intact left lower extremity till follow-up. Patient will follow-up with Dr. Borjas next week for dressing change. Patient maintain nonweightbearing left lower extremity. Patient contact us if there is any strikethrough to his dressing if he gets the dressing wet. Discharge Orders/Prescriptions Prescriptions: New amoxicillin-pot clavulanate 875-125 mg tablet 1 tab PO BID Qty: 20 0RF aspirin 81 mg tablet,delayed release (DR/EC) 81 mg PO DAILY Qty: 30 0RF atorvastatin 40 mg Tablet 40 mg PO QHS Qty: 30 0RF insulin glargine-yfgn 100 unit/mL (3 mL) Insulin Pen 20 unit subcut BID Qty: 15 0RF insulin lispro [Humalog KwikPen Insulin] 100 unit/mL Insulin Pen 12 unit subcut TIDAC Qty: 15 0RF Referrals / Follow Up: Jonah Borjas DPM [Med Staff - Active Staff] - See Referral Note (His office will call you to schedule an appointment for next week) Angelito Mitchell MD [Med Staff - Precision Layout Worker] - Within 2 Weeks Care Physician,No Primary [Primary Care Provider] - Disposition Disposition (needs filled in before D/C Order can be placed): Home, Self Care
[2024-03-12 11:58] LABS: Bedside Glucose 142 mg/dL (74-106)
--- NOTE | 2024-03-12 12:11 | DS.PCM_ITS ---
Providers Date of Admission: 03/09/24 Date of Discharge: 03/12/24 Primary Care Physician: Kathleen Primary Care Phys Consultations 03/09/24 16:01 Consult: Onc/Wound/agriculture department chair Routine Comment: Reason for Consult:: left great toe wound 03/10/24 08:33 Consult: Podiatry Routine Consulting Provider: Jonah Borjas Reason for Consult: left great toe wound EMERGENT Consult: No MD Notified: Yes Date Notified: 03/10/24 Time Notified: 08:33 Method of Notification: Text Reason For Visit: CELLULITIS OF THE LEFT GREAT TOE, UNCONTROLED TYPE Diagnosis Discharge Diagnosis (1) Other acute osteomyelitis, left ankle and foot: Status: Acute Code(s): M86.172 - Other acute osteomyelitis, left ankle and foot (2) Type 2 diabetes mellitus with diabetic polyneuropathy: Status: Acute Code(s): E11.42 - Type 2 diabetes mellitus with diabetic polyneuropathy Qualifiers: Diabetes mellitus fci insulin use: without fci use Q ualified Code(s): E11.42 - Type 2 diabetes mellitus with diabetic polyneuropathy Plan 1. Cellulitis and osteomyelitis of the left great toe/foot with extension into the left lower leg-patient will be maintained on IV Zosyn, podiatry is participating in his care, again patient underwent a left hallux amputation at the metatarsal phalangeal joint today. #2 uncontrolled type 2 diabetes due to noncompliance with medical regimen- patient was placed on insulin, he will be seen by the dietitian #3 cardiac arrhythmia-multifocal PVCs-patient will be monitored on telemetry #4 elevated creatinine probably secondary to dehydration-patient will receive fluids and labs will be rechecked tomorrow #5 hyperlipidemia-patient will be placed on Lipitor Total clinical time spent by myself addressing the patient's medical issues, reviewing all the data, and collaborating with patient's care team: 35 minutes Medications at Discharge Home Medications amoxicillin 875 mg-potassium clavulanate 125 mg tablet 1 tab PO BID #20 tabs 03/12/24 aspirin 81 mg tablet,delayed release 81 mg PO DAILY #30 tabs 03/12/24 atorvastatin 40 mg tablet 40 mg PO QHS #30 tabs 03/12/24 insulin glargine-yfgn 100 unit/mL (3 mL) subcutaneous pen 20 unit (0.2 mL) subcut BID #15 mL 03/12/24 insulin lispro 100 unit/mL subcutaneous pen (Humalog KwikPen (U-100) Insulin) 12 unit (0.12 mL) subcut TIDAC #15 mL 03/12/24 Hospital Course Operations - (Partial amputation of the left hallux due to osteomyelitis and cellulitis) Procedures None Summary of Care Provided Minutes Spent on Discharge: 31 Hospital Course: This 58-year-old white male was seen in the emergency room at [facility], he had redness and swelling to his left great toe, he had pulled his great toenail off approximately 3 weeks prior and was receiving care from a 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 Examination of the area in the emergency room showed the left great toe to be reddened, there is some streaking up the patient's left foot, and patient's blood sugar was elevated. At 651. Patient's creatinine was also elevated at 1.37, patient was admitted to [place] [address] for cellulitis of the left foot, IV antibiotics were administered and he was placed on insulin for his diabetes. He had known he was diabetic for several years but had been noncompliant with seeking treatment. Patient was seen by podiatry, it was felt that the patient had osteomyelitis in the left great toe and he went for a partial left great toe amputation, there were no complications from his surgery. Patient's blood sugars came under better control with the use of insulin. On 03/12/2024, patient was seen and examined: On examination he appeared in good health and spirits. Vital signs as documented. Skin warm and dry and without overt rashes. Neck without JVD, neck was supple, trachea midline, thyroid was normal. Lungs clear bilaterally, normal air movement was noted. Heart exam notable for regular rhythm, normal sounds and absence of murmurs, rubs or gallops. Abdomen unremarkable and without evidence of organomegaly, masses, or abdominal aortic enlargement. Bowel sounds are present, abdomen is not distended. Extremities-left great toe wound appears to be healing adequately at his amputation site with minimal redness and no discharge. Neuro: Cranial nerves II through XII are grossly intact, no focal motor deficits were noted, sensation to light touch and pinprick intact, motor exam 5/5 throughout. Psych: Patient is alert and oriented x3, he does not appear anxious or depressed, he does not appear agitated. On 03/12/2024, patient was discharged home in stable condition Weight / BMI Weight Weight: 102.149 kg Body Mass Index (BMI) 31.4 ABG / Lab / Microbiology Data 03/11/24 06:11 03/11/24 06:11 Laboratory: Laboratory Results - last 24 hr 03/11/24 15:59: POC Glucose 185 H 03/11/24 21:40: POC Glucose 140 H 03/12/24 07:35: POC Glucose 120 H 03/12/24 11:40: POC Glucose 142 H Microbiology: Microbiology 03/11/24 Unknown Tissue - Toe Gram Stain - Final 03/11/24 Unknown Tissue - Toe Wound Culture - Preliminary Streptococcus group B 03/11/24 Unknown Bone - Toe Gram Stain - Final 03/11/24 Unknown Bone - Toe Wound Culture - Preliminary Streptococcus group B 03/11/24 Unknown Incision/Surgical Site Gram Stain - Final 03/11/24 Unknown Incision/Surgical Site Wound Culture - Preliminary Gram positive organism 03/09/24 11:57 Blood Culture (Wb) - Anticubital Left Blood Culture - Preliminary Anaerobic cocci 03/10/24 07:45 Wound - Toe Gram Stain - Final 03/10/24 07:45 Wound - Toe Wound Culture - Final Streptococcus agalactiae (B) 03/09/24 11:11 Blood Culture (Wb) - Anticubital Right Blood Culture - Preliminary No growth in 48 hours. Radiography Diagnostic Testing: Radiology Impression Extremity Arterial Study 03/10/24 08:57 Interpretation Summary Right MELO 1.43, artificially elevated. TBI and Doppler/PVR waveforms of the right leg normal at rest. Left MELO 1.2, normal. Doppler/PVR waveforms of the left leg normal at rest. Unable to obtain TBI due to dressings. Ordering Physician: Jonah Borjas Performed By: Cem Dumont RVT Foot X-Ray 03/11/24 14:00 IMPRESSION: Fluoroscopic assistance for first digit amputation at the metatarsophalangeal joint. Please see operative report for additional information. Electronically Signed: Gael Grijalva MD at 20:37 EDT Reading Location ID and State: [facility] / [place] Tel , Service support , D/C Instructions Discharge Diet: 1800 Calorie Control Diet Meaningful Use Info Meaningful Use Meaningful Use Diagnoses (Choose all that apply): None applicable Ischemic Stroke Statin Dosing Therapy Reference: STATIN DOSE THERAPY REFERENCE: * Patients > 75 years receive moderate or high dose statin therapy. * Patients 75 years or YOUNGER should receive HIGH intensity statin dose unless contraindicated. You will be required to document reason for non-treatment if statin daily dose does not meet guidelines. HIGH DOSE STATIN THERAPY DAILY Atorvastatin > than or = to 40 mg Rosuvastatin > than or = to 20 mg Amlodipine + Atorvastatin > than or = to 2.5/40 mg Ezetimibe + Simvastatin 10/80 mg Simvastatin 80mg Discharge Plan Admission Admit Date/Time: 03/09/24 13:03 Primary Reason for Your Visit: Osteomyelitis of the left great toe, cellulitis of the left toe and foot Attending Provider: Rj Morin Primary Care Provider: Care Physician,No Primary Consulting Providers: Jonah Borjas Instructions Additional Instructions / Restrictions: Patient keep dressing clean dry intact left lower extremity till follow-up. Patient will follow-up with Dr. Borjas next week for dressing change. Patient maintain nonweightbearing left lower extremity. Patient contact us if there is any strikethrough to his dressing if he gets the dressing wet. Discharge Orders/Prescriptions Prescriptions: New amoxicillin-pot clavulanate 875-125 mg tablet 1 tab PO BID Qty: 20 0RF aspirin 81 mg tablet,delayed release (DR/EC) 81 mg PO DAILY Qty: 30 0RF atorvastatin 40 mg Tablet 40 mg PO QHS Qty: 30 0RF insulin glargine-yfgn 100 unit/mL (3 mL) Insulin Pen 20 unit subcut BID Qty: 15 0RF insulin lispro [Humalog KwikPen Insulin] 100 unit/mL Insulin Pen 12 unit subcut TIDAC Qty: 15 0RF Referrals / Follow Up: Jonah Borjas DPM [Med Staff - Active Staff] - See Referral Note (His office will call you to schedule an appointment for next week) Angelito Mitchell MD [Med Staff - Case Reviewer] - Within 2 Weeks Care Physician,No Primary [Primary Care Provider] - Disposition Disposition (needs filled in before D/C Order can be placed): Home, Self Care Charges/Coding Visit Charges Inpatient E&M: 49984 Disch Hosp >30min
--- NOTE | 2024-03-12 12:19 | CASEMGMT ---
JERMAINE CM into pt room, pt sitting up in chair with at bedside. Informed pt [facility] will be out tomorrow, will call him tonight with a time. Pt denied any concerns with going home at this time.
--- NOTE | 2024-03-12 12:30 | CASEMGMT ---
[facility] to [facility], spoke with Deedee, cost of pt meds is $112.78 and one of them is baby aspirin for $12.99. RN CM into pt room, pt states his friends are picking up the meds and covering the cost. Pt states he can afford the BGM. Discussed the importance of monitoring his blood sugar and logging it to take to his PCP when he obtains one. He plans to call and set up an appt once he is home. Pt is aware he does not need to change his dressing and that will change in the office. Pt denies any further homegoing needs at this time.
[2024-03-12 12:48] VITALS: BP 143/76; PULSE 82; RESP 18; TEMP 36.8; O2SAT 96
== END 2024-03-12 15:00 | disposition home or self-care (01) | DRG 617 ==
LOC: ED 13:08 → MS3 15:20
PROVIDERS: Anesthesiology; Podiatrist; Admitting Provider Internal Medicine; Emergency Provider Emergency Medicine; Visit Provider Internal Medicine
PROC: 0Y6Q0Z0 Detachment at Left 1st Toe, Complete, Open Approach (ICD-10-PCS; principal; 2024-03-11 13:15)
DX: E11.69 Type 2 diabetes mellitus with other specified complication (principal); L03.116 Cellulitis of left lower limb; M86.172 Other acute osteomyelitis, left ankle and foot; I96 Gangrene, not elsewhere classified; E11.52 Type 2 diabetes mellitus with diabetic peripheral angiopathy with gangrene; E86.0 Dehydration; L97.524 Non-pressure chronic ulcer of other part of left foot with necrosis of bone; E11.42 Type 2 diabetes mellitus with diabetic polyneuropathy; E11.621 Type 2 diabetes mellitus with foot ulcer; E11.65 Type 2 diabetes mellitus with hyperglycemia; I49.9 Cardiac arrhythmia, unspecified; E78.5 Hyperlipidemia, unspecified; R00.8 Other abnormalities of heart beat; Z91.148 Patient's other noncompliance with medication regimen for other reason
CPT/HCPCS: 36415; 73620; 73630; 73718; 76000; 80048; 80061; 80076; 82962; 83036; 85025; 85610; 85652; 85730; 86140; 87040; 87070; 87075; 87077; 87102; 87176; 87186; 87205; 87206; 87640; 93005; 93923; 94668; 97161; 97802; 99284; 99406; J7030; J7040; A4216; J2405

== ENCOUNTER → 2024-04-23 | Outpatient (CLI) | payer OTHER, SELFPAY | END | disposition home or self-care (01) | PROVIDERS: Referring Provider Podiatrist; Visit Provider Podiatrist | DX: L97.522 Non-pressure chronic ulcer 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 (principal) | CPT/HCPCS: 87070; 87075; 87077; 87186; 87205 ==

== ENCOUNTER 2025-10-18 09:01 | Emergency (ER) | payer OTHER, SELFPAY ==
[2025-10-18 09:02] VITALS: BP 151/85; PULSE 120; RESP 20; TEMP 36.1; O2SAT 100; BMI 33.5
--- NOTE | 2025-10-18 09:19 | EKG12_ITS ---
Test Reason : Blood Pressure : */* mmHG Vent. Rate : 95 BPM Atrial Rate : 95 BPM P-R Int : 148 ms QRS Dur : 82 ms QT Int : 364 ms P-R-T Axes : 53 -11 49 degrees QTcB Int : 457 ms Normal sinus rhythm Normal ECG Confirmed by Sunil Beaver ([id number]), online editor GAYLE KEITH ([id number]) on 10/19/2025 11:01:57 AM Also confirmed by Sunil Beaver ([id number]), online editor GAYLE KEITH ([id number]) on 10/20/2025 11:11:34 AM Referred By: Confirmed By: Sunil Beaver
--- NOTE | 2025-10-18 09:19 | EX.ED.DYSGE1 ---
HPI History of Present Illness Chief Complaint: Hyperglycemia Narrative Narrative: Patient is a 60-year-old male presenting to the emergency department for hyperglycemia. Patient has a past medical history of diabetes, alcohol abuse, he is supposed to be on either insulin per his chart or metformin per the patient. He states he stopped taking his medications in March because he thought he could heal himself. He states there was no doctor that told him to stop taking any of his medications. He states he has had some numbness in the bottoms of his feet for months now. He states today he felt lightheaded and nauseous and when he was at work at [employer] they checked his blood sugar and it was in the 400s and sent him here for evaluation. He did not take any medications prior to arrival. States he feels back to baseline now. He denies any fever or chills. Denies any chest pain, shortness of breath, abdominal pain, dysuria or hematuria. PFSH [facility] Medical History Non-pressure chronic ulcer of other part of left foot with necrosis of bone Other acute osteomyelitis, left ankle and foot Other specified peripheral vascular diseases Hyperglycemia Cellulitis Dyspnea History of stress test Alcohol abuse Diabetes Home Medications ?Medication ?Instructions ?Recorded ?Last Taken ?Type NK 10/18/25 Unknown History Allergy/AdvReac Type Severity Reaction Status Date / Time No Known Allergies Allergy Verified 10/18/25 09:02 Social History Smoking Status: Never smoker ROS ROS ED ROS Narrative see HPI EXAM Physical Exam Narrative Exam Narrative: Vital signs: Reviewed General: Alert and orientedx3. No acute distress. Well appearing, nontoxic. HEENT: Head is normocephalic and atraumatic, sinuses nontender, pupils equal round and reactive. Nares are patent. Oropharynx and throat exams normal. Neck: Supple without lymphadenopathy nontender Cardiovascular: Regular rate and rhythm, no murmurs. No rubs or gallops. Normal S1 and S2 Respiratory: Clear to auscultation bilaterally. No wheezes, rales, rhonchi Abdominal: Soft and nontender. Normal bowel sounds. No guarding or rebound. Nonsurgical abdomen Extremities: No tenderness. No bruising. Normal range of motion. Normal sensation. Skin: No rash or redness. Neurological: Cranial nerves II through XII are grossly intact. Normal strength and sensation. Normal cerebellar function The rest of the physical exam is unremarkable Const Vital Signs: 10/18/25 09:02 10/18/25 11:37 10/18/25 13:20 Temperature 96.9 F L Temperature Source Temporal Pulse Rate 120 H 87 101 H Respiratory Rate 20 H 11 L 18 Blood Pressure 151/85 H 155/79 H 153/93 H Blood Pressure Mean 107 104 113 Pulse Ox 100 100 100 Oxygen Delivery Method Room Air MDM MDM MDM Narrative Medical decision making narrative: Patient is a 60-year-old male presenting to the emergency department for hyperglycemia with a known history of diabetes noncompliant with medication. Patient was seen and examined. Patient is tachycardic at 120 with a BP of 121/85. Respirations of 20, afebrile saturating 100% on room air. Fluid bolus started for tachycardia and for hyperglycemia. Differential includes but is not limited to: Hyperglycemia secondary to medication noncompliance which is most likely however will evaluate for any underlying infection as well as DKA EKG shows normal sinus rhythm at a rate of 95 with no ischemic changes. No dysrhythmia. CBC with very mild nonspecific leukocytosis of 11.4 and a normal hemoglobin. BMP with hyperglycemia of 503. Lactate is mildly elevated at 2.2 however I think this is likely due to dehydration. No anion gap and normal bicarb. Beta hydroxybutyrate very mildly elevated at .5, labs not consistent with DKA. Urinalysis with 1000 glucose and 5 ketones which is consistent with his hyperglycemia, no evidence of urinary tract infection. Chest x-ray reviewed myself and shows no opacities, pneumothorax or right mediastinum. Radiology read in agreement. Patient was given 10 units of subcutaneous insulin and [id number] glucose was rechecked after insulin and fluid bolus and is now 366. Lactic rechecked and is now within normal limits at 1.3. Patient's heart rate improved after fluids. Patient was updated on the lab findings. He was instructed that he needs to use his insulin as prescribed to keep his glucose within normal limits. He reported that he has some financial concerns that he cannot afford his insulin and I did consult aids social worker spoke with him and his insulin requires a $0 co-pay. He was notified of this and will go brick picker his prescription that he has from his primary care doctor previously. Patient discharged from the Emergency Department. I do not feel that the patient's evaluation reveals any acute reason for admission at this time. I instructed them to either follow-up with their primary care physician or promptly return to the Emergency Department for reevaluation should symptoms worsen or new symptoms develop. I explained what symptoms would indicate the need to return to the emergency department. Shared decision making was used. The patient voiced understanding of the treatment plan and is agreeable with it. Clinical impression: Hyperglycemia Type 2 diabetes History & Record Review Discussion w/independent historian: Patient Lab Data Attestation: I reviewed the patient's lab results. Labs: Laboratory Results - last 24 hr 10/18/25 10/18/25 10/18/25 09:15 09:30 09:52 WBC 11.4 H RBC 5.17 Hgb 15.3 Hct 44.7 MCV 86.5 MCH 29.6 MCHC 34.2 RDW Std Deviation 39.5 RDW Coeff of [place] 12.5 Plt Count 236 MPV 11.3 Immature Gran % (Auto) 0.600 Neut % (Auto) 80.9 H Lymph % (Auto) 12.5 L [place] % (Auto) 4.8 Eos % (Auto) 0.7 Baso % (Auto) 0.5 Absolute Neuts (auto) 9.2 H Absolute Lymphs (auto) 1.42 Nucleated RBC % 0 Sodium 137 Potassium 4.5 Chloride 99 Carbon Dioxide 25.7 Anion Gap 13 BUN 17 Creatinine 1.45 H Estim Creat Clear Calc 68.84 Est GFR (MDRD) Non-Af 56 L BUN/Creatinine Ratio 11.7 Glucose 503 H* Lactic Acid 2.2 H* Calcium 9.5 b-Hydroxybutyric mmol/L 0.5 H Urine Color Yellow Urine Clarity Clear Urine pH 6.0 Ur Specific [place] 1.015 Urine Protein 100 H Urine Glucose (UA) 1000 H Urine Ketones 5 H Urine Occult Blood 10 H Urine Nitrite Negative Urine Bilirubin Negative Urine Urobilinogen Normal Ur Leukocyte Esterase Negative Urine RBC 0 SEEN Urine WBC 0-5 SEEN Ur Squamous Epith Cells 0 SEEN Urine Bacteria 0 SEEN Urine Mucus 0 SEEN POC Glucose 406 H 10/18/25 10/18/25 10/18/25 12:00 12:17 13:14 WBC RBC Hgb Hct MCV MCH MCHC RDW Std Deviation RDW Coeff of [place] Plt Count MPV Immature Gran % (Auto) Neut % (Auto) Lymph % (Auto) [place] % (Auto) Eos % (Auto) Baso % (Auto) Absolute Neuts (auto) Absolute Lymphs (auto) Nucleated RBC % Sodium Potassium Chloride Carbon Dioxide Anion Gap BUN Creatinine Estim Creat Clear Calc Est GFR (MDRD) Non-Af BUN/Creatinine Ratio Glucose Lactic Acid 1.3 Calcium b-Hydroxybutyric mmol/L Urine Color Urine Clarity Urine pH Ur Specific [place] Urine Protein Urine Glucose (UA) Urine Ketones Urine Occult Blood Urine Nitrite Urine Bilirubin Urine Urobilinogen Ur Leukocyte Esterase Urine RBC Urine WBC Ur Squamous Epith Cells Urine Bacteria Urine Mucus POC Glucose 364 H 366 H 10/18/25 13:35 WBC RBC Hgb Hct MCV MCH MCHC RDW Std Deviation RDW Coeff of [place] Plt Count MPV Immature Gran % (Auto) Neut % (Auto) Lymph % (Auto) [place] % (Auto) Eos % (Auto) Baso % (Auto) Absolute Neuts (auto) Absolute Lymphs (auto) Nucleated RBC % Sodium Potassium Chloride Carbon Dioxide Anion Gap BUN Creatinine Estim Creat Clear Calc Est GFR (MDRD) Non-Af BUN/Creatinine Ratio Glucose Lactic Acid Cancelled Calcium b-Hydroxybutyric mmol/L Urine Color Urine Clarity Urine pH Ur Specific [place] Urine Protein Urine Glucose (UA) Urine Ketones Urine Occult Blood Urine Nitrite Urine Bilirubin Urine Urobilinogen Ur Leukocyte Esterase Urine RBC Urine WBC Ur Squamous Epith Cells Urine Bacteria Urine Mucus POC Glucose Radiography Diagnostic Testing: Clinical Impression(s) from Imaging Studies Chest X-Ray 10/18/25 09:35 IMPRESSION: Mild elevation right hemidiaphragm. Otherwise unremarkable. Reading Location: [facility] Discharge Plan Triage Chief Complaint: Hyperglycemia ED Provider: Christin Phillips Dx/Rx/DC Orders Clinical Impression: Hyperglycemia, Type 2 diabetes mellitus Instructions: ED Diabetic Hyperglycemia, ED Diet: Diabetes, Facts About Diabetes Prescriptions: No Action NK Primary Care Provider: Care Physician,No Primary Referrals: SHELBI HECK, SOLE MOLDING MACHINE OPERATOR-C [Non-Staff, Family Practice] - As soon as possible Activity Restrictions/Additional Instructions: Please use your insulin as prescribed. This is why your blood sugar was high. Your evaluation in the Emergency Department did not reveal any acute reason for admission. However, I want to emphasize that you may be early in the course of a disease process or illness even if it is not present. For this reason you should follow-up within 24 hours for reevaluation with either your primary care physician or if necessary back here in the Emergency Department. You should return to the Emergency Department immediately if your symptoms worsen or new symptoms develop. Print Language: Yi Disposition Disposition: Home, Self Care Discharge Date/Time: 10/18/25 14:59
[2025-10-18 09:30] LABS: Hematocrit 44.7 % (40-54); Hemoglobin 15.3 g/dL (13.0-16.5); Immature Granulocytes Count 0.070 X10^3/uL (0.0-0.0); Mean Corp Hgb Conc 34.2 g/dL (32-36); Mean Corpuscular Volume 86.5 fL (80-94); Mean Platelet Vol. 11.3 fl (6.2-12.0); NRBC Flagged by Analyzer 0 % (0-5); Platelet Count 236 K/mm3 (150-450); RBC Distribution Width CV 12.5 % (11.6-14.6); RBC Distribution Width SD 39.5 fl (35.1-43.9); Red Blood Count 5.17 M/mm3 (4.6-6.2); White Blood Count 11.4 K/mm3 (4.4-11.0)
[2025-10-18] MEDS: 0.9% Normal Saline (1000mL) 1,000 ML 1000 ML IV (09:31)
[2025-10-18 09:34] LABS: Mucous, Urine 0 SEEN /hpf (<or=2+); Red Blood Cells-Urine 0 SEEN /hpf (0-5); Squamous Epithelial Cells - UA 0 SEEN /hpf (0-5)
--- NOTE | 2025-10-18 09:35 | RAD_ITS ---
PROCEDURE: CHEST PA AND LATERAL 10/18/2025 REASON FOR EXAM: UNWELL FEELING TECHNIQUE: Procedure Code: RADCXR Modality: DX Procedure: CHEST PA AND LATERAL COMPARISON: None FINDINGS: Hardware: Lower cervical spine fusion. EKG leads. Heart: The heart size is normal. Mediastinum: There are atherosclerotic calcifications of the thoracic aorta. Lungs: Mild elevation right hemidiaphragm. Otherwise, the lungs are clear. Bones: The bones are unremarkable. RAD/Chest PA and Lateral IMPRESSION: Mild elevation right hemidiaphragm. Otherwise unremarkable. Reading Location: [id number]
[2025-10-18 09:37] LABS: Color, Urine Yellow (Yellow); Glucose, Dipstick 1000 mg/dl (Normal); Ketone-Dipstick 5 mg/dl (Negative); Leukocyte Esterase-Dipstick Negative /ul (Negative); Nitrite-Dipstick Negative (Negative); Occult Blood-Urine 10 /ul (Negative); Protein-Dipstick 100 mg/dl (Negative); Specific Gravity, Urine 1.015 (1.002-1.030); Urine Bilirubin Dipstick Negative (Negative)
[2025-10-18 09:52] LABS: BETA-HYDROXYBUTYRATE 0.5 mmol/L (0.0-0.3)
[2025-10-18 09:56] LABS: Anion Gap 13 (5-15); BUN 17 mg/dL (4-19); BUN/Creat Ratio 11.7 RATIO (10-20); Calcium,Total 9.5 mg/dL (7.6-11.0); Carbon Dioxide 25.7 mmol/L (21.0-32.0); Chloride 99 mmol/L (98-108); Estimated Creatinine Clearance 68.84 ml/min (50-250); Glucose 503 mg/dL (70-99); Potassium 4.5 mmol/L (3.3-5.1)
[2025-10-18] MEDS: Insulin NPH Human 100 UNITS/ML PEN 10 UNITS SC (10:44)
[2025-10-18 11:37] VITALS: BP 155/79; PULSE 87; RESP 11; O2SAT 100
--- OUTSIDE RECORDS SUMMARY | 2025-10-18 12:20 | XMS RPT_ITS | CCD ---
Author Organization [facility] Care Team Providers Care Meat Packer Name Role Phone MARIAR GARCIA, SHELBI Primary Care Physician MARIA R GARCIA, SHELBI Attending Yana HECK APRN-WINNIE, SHELBI Primary Care Unavai lable Care Physician, No Primary Primary Care Unava ilable Jonah Borjas Attending Unavailable Jonah Borjas Referring Unavailable Lian Morin Admitting Unavailable Care Physician, No Primary Primary Care Unava ilable Lian Morin Attending Unavailable Jonah Borjas Consulting Unavailable Care Physician, No Primary Primary Care Unava ilable Jonah Borjas Referring Unavailable Jonathon Parsons Attending Unavailable Care Physician, No Primary Primary Care Unava ilable Lian Morin Attending Unavailable Patience, Lian Admitting Unavailable Jonah Borjas Consulting Unavailable Lian Morin Consulting Unavailable SHELBI HECK Primary Care Unavailable SHELBI HECK Attending Unavailable Medications Current Medications Medication Drug Class(es) Dates Sig (Normalized) Sig (Original) aspirin 81 mg delayed release oral tablet (1 source) Platelet Aggregation Inhibitor, Nonsteroidal Anti-inflammatory Drug Start: 05-27-2024 aspirin 81 mg oral delayed release tablet Dose : 81 mg = 1 tab(s), Oral, qDay, # 30 tab(s), 0 Refill(s) Start Date: 05/27/24 Status: Ordered diphenhydrAMINE hydrochloride 25 mg oral capsule (1 source) Histamine-1 Receptor Antagonist Start: 05-27-2024 Benadryl 25 mg oral capsule Dose : 50 mg = 2 cap(s), Oral, qHS, PRN for insomnia, 0 Refill(s) Start Date: 05/27/24 Status: Ordered 3 ml insulin glargine 100 unt/ml pen injector (2 sources) Insulin Analog Start: 05-29-2024 End: 09-26-2024 inject 1 dose by subcutaneous injection twice daily Basaglar 100 unit(s)/mL 3 mL KwikPen Dose : 10 unit(s) =, Subcutaneous, BID, # 15 mL, 3 Refill(s), Pharmacy: [facility], 179, cm, 05/27/24 15:30:00 EDT, Height, kg, 05/27/24 15:30:00 EDT, Dosing Weight Start Date: 08/05/24 Status: Ordered metFORMIN hydrochloride 500 mg oral tablet (1 source) Biguanide Start: 05-27-2024 metFORMIN 500 mg oral tablet (IR) Dose : 500 mg = 1 tab(s), Oral, BID, # 60 tab(s), 0 Refill(s), Pharmacy: [facility], Type 2 diabetes mellitus, 179, cm, 05/27/24 15:30:00 EDT, Height, kg, 05/27/24 15:30:00 EDT, Dosing Weight Start Date: 05/27/24 Status: Ordered Completed/Discontinued Medications Medication Drug Class(es) Dates Sig (Normalized) Sig (Original) atorvastatin 40 mg oral tablet (1 source) HMG-CoA Reductase Inhibitor Start: 05-27-2024 End: 06-26-2024 atorvastatin 40 mg oral tablet Dose : 40 mg = 1 tab(s), Oral, qDay, # 30 tab(s), 0 Refill(s), Pharmacy: [facility], Hyperlipidemia, 179, cm, 05/27/24 15:30:00 EDT, Height, kg, 05/27/24 15:30:00 EDT, Dosing Weight Start Date: 05/27/24 Stop Date: 06/26/24 Status: Ordered lisinopril 10 mg oral tablet (1 source) Angiotensin Converting Enzyme Inhibitor Start: 05-27-2024 End: 06-26-2024 lisinopril 10 mg oral tablet Dose : 10 mg = 1 tab(s), Oral, qDay, # 30 tab(s), 0 Refill(s), Pharmacy: [facility], Hypertension, 179, cm, 05/27/24 15:30:00 EDT, Height, kg, 05/27/24 15:30:00 EDT, Dosing Weight Start Date: 05/27/24 Stop Date: 06/26/24 Status: Ordered Problems Active Problems Problem Classification Problem Date Documented Da te Episodic/Chronic Chronic ulcer of skin (2 sources) Non-pressure chronic ulcer 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; Translations: [Non-pressure chronic ulcer of other part of left foot with necrosis of bone] Onset: 03-15-2024 Chronic Diabetes mellitus with complications (1 source) Type 2 diabetes mellitus with diabetic polyneuropathy; Translations: [Type 2 diabetes mellitus with diabetic polyneuropathy] Onset: 03-15-2024 Chronic Diabetes mellitus without complication (3 sources) Type 2 diabetes mellitus; Translations: [Type 2 diabetes mellitus without complications] Onset: 10-01-2024 05-27-2024 Chronic Diabetes mellitus without complication (2 sources) Hyperglycemia; Translations: [Hyperglycemia, unspecified] 03-09-2024 Episodic Disorders of lipid metabolism (3 sources) Hyperlipidemia; Translations: [Hyperlipidemia, unspecified] Onset: 10-01-2024 05-27-2024 Chronic Essential hypertension (3 sources) Hypertensive disorder; Translations: [Essential (primary) hypertension] Onset: 10-01-2024 05-27-2024 Chronic Infective arthritis and osteomyelitis (except that caused by tuberculosis or sexually transmitted disease) (2 sources) Other acute osteomyelitis, left ankle and foot; Translations: [Other acute osteomyelitis, left ankle and foot] Onset: 03-15-2024 Chronic Other bone disease and musculoskeletal deformities (1 source) Amputated big toe 05-27-2024 Chronic Other circulatory disease (1 source) Other specified peripheral vascular diseases; Translations: [Other specified peripheral vascular diseases] Onset: 03-15-2024 Chronic Other nutritional; endocrine; and metabolic disorders (1 source) Body mass index 30+ - obesity 05-27-2024 Chronic Other screening for suspected conditions (not mental disorders or infectious disease) (2 sources) Encounter for screening for malignant neoplasm of prostate; Translations: [Encounter for screening for malignant neoplasm of prostate] Onset: 10-01-2024 Episodic Past or Other Problems Problem Classification Problem Date Documented Da te Episodic/Chronic Skin and subcutaneous tissue infections (3 sources) Cellulitis; Translations: [Cellulitis, unspecified] Onset: 03-15-2024 03-09-2024 Episodic Results Test Name Value Interpretation Reference Range Facility .GFRon 10-01-2024 GFR Non- 71 ml/min/1.73sqm Normal [facility] Comment on above: Result Comment: GFR Population mean for , Non- Americans Ages 20-29 = 116 mL/min/1.73 sq.m. Ages 30-39 = 107 mL/min/1.73 sq.m. Ages 40-49 = 99 mL/min/1.73 sq.m. Ages 50-59 = 93 mL/min/1.73 sq.m. Ages 60-69 = 85 mL/min/1.73 sq.m. Ages 70+ = 75 mL/min/1.73 sq.m. Chronic Kidney Disease: Less than 60 mL/min/1.73 square meters End Stage Renal Disease: Less than 15 mL/min/1.73 square meters Performed By: #### P SA, GFR, LIPID, CMP #### [address] [address] GFR 86 ml/min/1.73sqm Normal [facility] Comment on above: Result Comment: GFR Population mean for , Non- Americans Ages 20-29 = 116 mL/min/1.73 sq.m. Ages 30-39 = 107 mL/min/1.73 sq.m. Ages 40-49 = 99 mL/min/1.73 sq.m. Ages 50-59 = 93 mL/min/1.73 sq.m. Ages 60-69 = 85 mL/min/1.73 sq.m. Ages 70+ = 75 mL/min/1.73 sq.m. Chronic Kidney Disease: Less than 60 mL/min/1.73 square meters End Stage Renal Disease: Less than 15 mL/min/1.73 square meters Performed By: #### P SA, GFR, LIPID, CMP #### [address] [address] CMPon 10-01-2024 Albumin Level 3.8 G/dL Normal 3.5-5.0 [facility] Comment on above: Performed By: #### P SA, GFR, LIPID, CMP #### [address] [address] Albumin/Globulin [Mass ratio] 1.1 {ratio} Normal 1.1-2.5 [facility] Comment on above: Performed By: #### P SA, GFR, LIPID, CMP #### [address] [address] ALP [Catalytic activity/Vol] 45 U/L Normal 40-135 [facility] Comment on above: Performed By: #### P SA, GFR, LIPID, CMP #### [address] [address] ALT [Catalytic activity/Vol] 35 U/L Normal 16-63 [facility] Comment on above: Performed By: #### P SA, GFR, LIPID, CMP #### [place] [id number] AST [Catalytic activity/Vol] 23 U/L Normal 10-40 [facility] Comment on above: Performed By: #### P SA, GFR, LIPID, CMP #### [address] [address] Bili Total 0.6 mg/dL Normal 0.2-1.0 [facility] Comment on above: Result Comment: Use of this assay is not recommended for patients undergoing treatment with eltrombopag due to the potential for falsely elevated results. Performed By: #### P SA, GFR, LIPID, CMP #### [address] [address] BUN/Creatinine Ratio 13 ratio Normal 7-27 [facility] Comment on above: Performed By: #### P SA, GFR, LIPID, CMP #### [address] [address] Calcium [Mass/Vol] 9.3 mg/dL Normal 8.4-10.2 [facility] Comment on above: Performed By: #### P SA, GFR, LIPID, CMP #### [address] [address] Chloride [Moles/Vol] 103 mmol/L Normal 98-107 [facility] Comment on above: Performed By: #### P SA, GFR, LIPID, CMP #### [address] [address] CO2 [Moles/Vol] 28 mmol/L Normal 22-29 [facility] Comment on above: Performed By: #### P SA, GFR, LIPID, CMP #### [address] [address] Creatinine [Mass/Vol] 1.07 mg/dL Normal 0.70-1.30 [facility] Comment on above: Result Comment: Test ing performed on [employer] Dimension EXL analyzer using a modified kinetic Juancho technique. Performed By: #### P SA, GFR, LIPID, CMP #### [address] [address] Electrolyte Balance 11.0 mEq/L Normal 4.0-15.0 [facility] Comment on above: Performed By: #### P SA, GFR, LIPID, CMP #### [address] [address] Globulin 3.4 G/dL Normal [facility] Comment on above: Performed By: #### P SA, GFR, LIPID, CMP #### [address] [address] Glucose [Mass/Vol] 111 mg/dL High 70-105 [facility] Comment on above: Performed By: #### P SA, GFR, LIPID, CMP #### [address] [address] Potassium [Moles/Vol] 4.1 mmol/L Normal 3.5-5.1 [facility] Comment on above: Performed By: #### P SA, GFR, LIPID, CMP #### [address] [address] Sodium [Moles/Vol] 142 mmol/L Normal 136-145 [facility] Comment on above: Performed By: #### P SA, GFR, LIPID, CMP #### [address] [address] Total Protein 7.2 G/dL Normal 6.4-8.2 [facility] Comment on above: Performed By: #### P SA, GFR, LIPID, CMP #### [place] [id number] [place], [place] [address] Urea nitrogen [Mass/Vol] 14 mg/dL Normal 7-18 [facility] Comment on above: Performed By: #### P SA, GFR, LIPID, CMP #### [place] [id number] [place], [place] [address] LABORATORYOrdered By: SYSTEM SYSTEM on 10-01-2024 Albumin BCP dye [Mass/Vol] 3.8 G/dL Normal 3.5 - 5.0 G/dL AO ADM SS Albumin/Globulin [Mass ratio] 1.1 {ratio} Normal 1.1 - 2.5 ratio AO ADM SS ALP [Catalytic activity/Vol] 45 U/L Normal 40 - 135 U/L AO ADM SS ALT With P-5'-P [Catalytic activity/Vol] 35 U/L Normal 16 - 63 U/L AO ADM SS AST With P-5'-P [Catalytic activity/Vol] 23 U/L Normal 10 - 40 U/L AO ADM SS Bilirubin [Mass/Vol] 0.6 mg/dL Normal 0.2 - 1 .0 mg/dL AO ADM SS Comment on above: Interpretive Data: U se of this assay is not recommended for patients undergoing treatment with eltrombopag due to the potential for falsely elevated results. Calcium [Mass/Vol] 9.3 mg/dL Normal 8.4 - 10. 2 mg/dL AO ADM SS Chloride [Moles/Vol] 103 mmol/L Normal 98 - 10 7 mmol/L AO ADM SS CO2 [Moles/Vol] 28 mmol/L Normal 22 - 29 mmol/L AO ADM SS Creatinine [Mass/Vol] 1.07 mg/dL Normal 0.70 - 1.30 mg/dL AO ADM SS Comment on above: Interpretive Data: T esting performed on Siemens Dimension EXL analyzer using a modified kinetic Juancho technique. Electrolyte Balance 11.0 mEq/L Normal 4.0 - 15 .0 mEq/L AO ADM SS GFR/1.73 sq M.predicted among blacks MDRD (S/P/Bld) [Vol rate/Area] 86 ml/min/1.73sqm Invalid Interpretation Code AO Chemistry S Comment on above: Interpretive Data: GFR Population mean for , Non- Americans Ages 20-29 = 116 mL/min/1.73 sq.m. Ages 30-39 = 107 mL/min/1.73 sq.m. Ages 40-49 = 99 mL/min/1.73 sq.m. Ages 50-59 = 93 mL/min/1.73 sq.m. Ages 60-69 = 85 mL/min/1.73 sq.m. Ages 70+ = 75 mL/min/1.73 sq.m. Chronic Kidney Disease: Less than 60 mL/min/1.73 square meters End Stage Renal Disease: Less than 15 mL/min/1.73 square meters GFR/1.73 sq M.predicted among non-blacks MDRD (S/P/Bld) [Vol rate/Area] 71 ml/min/1.73sqm Invalid Interpretation Code AO Chemistry S Comment on above: Interpretive Data: GFR Population mean for , Non- Americans Ages 20-29 = 116 mL/min/1.73 sq.m. Ages 30-39 = 107 mL/min/1.73 sq.m. Ages 40-49 = 99 mL/min/1.73 sq.m. Ages 50-59 = 93 mL/min/1.73 sq.m. Ages 60-69 = 85 mL/min/1.73 sq.m. Ages 70+ = 75 mL/min/1.73 sq.m. Chronic Kidney Disease: Less than 60 mL/min/1.73 square meters End Stage Renal Disease: Less than 15 mL/min/1.73 square meters Globulin 3.4 G/dL Invalid Interpretation Code AO ADM SS Glucose [Mass/Vol] 111 mg/dL High 70 - 105 mg/dL AO ADM SS Potassium [Moles/Vol] 4.1 mmol/L Normal 3.5 - 5.1 mmol/L AO ADM SS Prostate specific Ag [Mass/Vol] 1.07 ng/mL Normal 0.00 - 4.00 ng/mL AO ADM SS Protein [Mass/Vol] 7.2 G/dL Normal 6.4 - 8.2 G/dL AO ADM SS Sodium [Moles/Vol] 142 mmol/L Normal 136 - 145 mmol/L AO ADM SS Urea nitrogen [Mass/Vol] 14 mg/dL Normal 7 - 18 mg/dL AO ADM SS Urea nitrogen/Creatinine [Mass ratio] 13 ratio Normal 7 - 27 ratio AO ADM SS LABORATORYOrdered By: Anibal Mendez on 10-01-2024 Albumin DL <= 20 mg/L (U) [Mass/Vol] [address] mcg/dL Invalid Interpretation Code AO ADM SS Albumin/Creatinine DL <= 20 mg/L (U) [Mass ratio] 32 mcg/mg High 0 - 30 mcg/mg AO ADM SS Creatinine (U) [Mass/Vol] 312.0 mg/dL High 39.0 - 259.0 mg/dL AO ADM SS LABORATORYOrdered By: Fiordaliza Quinones on 10-01-2024 Cholesterol [Mass/Vol] 251 mg/dL High 0 - 2 00 mg/dL AO ADM SS Comment on above: Interpretive Data: C holesterol Reference Interval: Less than 200 Desirable 200-239 Borderline high risk 240 and above High risk Cholesterol in HDL [Mass/Vol] 60 mg/dL Normal 40 - 60 mg/dL AO ADM SS Cholesterol in LDL [Mass/Vol] 175 mg/dL High 0 - 130 mg/dL AO ADM SS Triglyceride [Mass/Vol] 78 mg/dL Normal 0 - 150 mg/dL AO ADM SS Comment on above: Interpretive Data: T riglyceride Reference Interval: Less than 150 Normal 150-199 Borderline high risk 200-499 High risk 500 or higher Very high risk LIPIDon 10-01-2024 Cholesterol [Mass/Vol] 251 mg/dL High 0-200 [facility] Comment on above: Result Comment: Chol esterol Reference Interval: Less than 200 Desirable 200-239 Borderline high risk 240 and above High risk Performed By: #### P SA, GFR, LIPID, CMP #### [address] [address] Cholesterol in HDL [Mass/Vol] 60 mg/dL Normal 40-60 [facility] Comment on above: Performed By: #### P SA, GFR, LIPID, CMP #### [address] [address] Cholesterol in LDL [Mass/Vol] 175 mg/dL High 0-130 [facility] Comment on above: Performed By: #### P SA, GFR, LIPID, CMP #### [address] [address] Triglyceride [Mass/Vol] 78 mg/dL Normal 0-150 [facility] Comment on above: Result Comment: Trig lyceride Reference Interval: Less than 150 Normal 150-199 Borderline high risk 200-499 High risk 500 or higher Very high risk Performed By: #### P SA, GFR, LIPID, CMP #### [address] [address] MALBRon 10-01-2024 U Creatinine 312.0 mg/dL High 39.0-259.0 [facility] Comment on above: Performed By: #### M ALBR #### [address] [address] U Microalb [address] mcg/dL Normal [facility] Comment on above: Performed By: #### M ALBR #### [address] [address] U Ratio Alb/Cre 32 mcg/mg High 0-30 [facility] Comment on above: Performed By: #### M ALBR #### [address] [address] PSAon 10-01-2024 Prostate Specific Antigen 1.07 ng/mL Normal 0.00-4.00 [facility] Comment on above: Performed By: #### P SA, GFR, LIPID, CMP #### [address] [address] Culture, Anaerobic Any Sourc joya 04-28-2024 CUAN No anaerobic bacteri a isolated. Normal [facility] Comment on above: Performed By: #### L 501.080 #### [facility] [address] [place], [address] Wound Cultureon 04-27-2024 WC #2 Gram positive jules suggestive of a diphtheroid. Susceptibility not normally performed on this organism Meth. resistant Staph. aureus Amount Growth 3+ mecA Testing not performed Corynebacterium striatum Amount Growth 3+ Achromobacter denitrificans Amount Growth Very Rare MARKER A Multi Drug Resistant Organism A Meth. resistant Staph. aureus: REACTION cefOXitin Susc Islt POS Doxycycline Islt ABDULKADIR <=0.5 S Clindamycin.induced Susc Islt POS Erythromycin Islt ABDULKADIR R Gentamicin Islt ABDULKADIR <=0.5 S Linezolid Islt ABDULKADIR 2 S Oxacillin Susc Islt >=4 R Tetracycline Islt ABDULKADIR <=1 S TMP SMX Islt ABDULKADIR <=10 S Vancomycin Islt ABDULKADIR <=0.5 S Achromobacter denitrificans: REACTION Amikacin Islt ABDULKADIR >=64 R Aztreonam Islt ABDULKADIR >=64 R Meropenem Islt ABDULKADIR <=0.25 S Tetracycline Islt ABDULKADIR >=16 R Achromobacter denitrificans: REACTION ceFAZolin Islt ABDULKADIR >=64 R Ciprofloxacin Islt ABDULKADIR >=4 R Gentamicin Islt ABDULKADIR >=16 R levoFLOXacin Islt ABDULKADIR 4 I Tobramycin Islt ABDULKADIR 8 I TMP SMX Islt ABDULKADIR <=20 S Normal [facility] Comment on above: Performed By: #### L 501.080 #### [facility] [address] [facility] [place], [address] Gram Stainon 04-24-2024 Gram Stain 3+ Gram positive cocci 1+ Gram positive rods 2+ Epithelial cells No White Blood Cells Normal [facility] Comment on above: Performed By: #### L 501.080 #### [facility] [address] [facility] [place], [address] Culture, Fungus 8482on 04-11 CUF Comments: collected in or left hallux bone Is this test to exclude patient from TB Isolation? N TESTING PERFORMED AT [facility]. ORIGINAL REPORT ON FILE IN LAB CONTAINS ADDITIONAL TEST SITE INFORMATION. CUF No yeast or mold isolated after 4 weeks. [facility] Comment on above: Performed By: #### M 600.2200, M600.2000, M100.3000, M100.2000, M100.4001 ####[facility] [address] [place], [address] CUF Comments: collected in or left hallux tissue Is this test to exclude patient from TB Isolation? N TESTING PERFORMED AT [facility]. ORIGINAL REPORT ON FILE IN LAB CONTAINS ADDITIONAL TEST SITE INFORMATION. CUF No yeast or mold isolated after 4 weeks. [facility] Comment on above: Performed By: #### L 500.2500, L100.0100 #### [facility] [address] [place], [place], [address] Fungus Stain 8136on 04-11-20 FUNST Comments: collected in or left hallux bone Is this test to exclude patient from TB Isolation? N TESTING PERFORMED AT [facility]. ORIGINAL REPORT ON FILE IN LAB CONTAINS ADDITIONAL TEST SITE INFORMATION. Fungus Stain No fungus observed. [facility] Comment on above: Performed By: #### M 600.2200, M600.2000, M100.3000, M100.2000, M100.4001 ####[facility] [address] [place], [address] FUNST Comments: collected in or left hallux tissue Is this test to exclude patient from TB Isolation? [facility] ORIGINAL REPORT ON FILE IN LAB CONTAINS ADDITIONAL TEST SITE INFORMATION. Fungus Stain No fungus observed. Normal [facility] Comment on above: Performed By: #### L 500.2500, L100.0100 #### [facility] [address] [place], [address] Culture, Anaerobic Any [facility] joya 03-15-2024 CUAN . . collected in or left hallux bone Studies have confirmed that Anaerobic Gram Positive Cocci are routinely SUSCEPTABLE to Penicillin and generally susceptible to Beta-lactams and Beta-lactamase inhibitors, Cephalosporins, Carbapenems and Metronidazole. They are showing increased RESISTANCE to Clindamycin Anaerobic cocci Normal [facility] Comment on above: Performed By: #### L 501.080 #### [facility] [address] [place], [address] Performed By: #### L 500.2500, L100.0100 #### [facility] [address] [facility] [place], [address] CUAN collected in or post lavage cultures Studies have confirmed that Anaerobic Gram Positive Cocci are routinely SUSCEPTABLE to Penicillin and generally susceptible to Beta-lactams and Beta-lactamase inhibitors, Cephalosporins, Carbapenems and Metronidazole. They are showing increased RESISTANCE to Clindamycin Anaerobic cocci Normal [facility] Comment on above: Performed By: #### L 501.080 #### [facility] [address] [place], [address] Culture, Blood (WB)on 2023 CUB No growth in 5 days. Normal [facility] Comment on above: Performed By: #### L 501.080 #### [facility] [address] [place], [address] Wound Cultureon 03-14-2024 WC collected in or post lavage cultures Streptococcus agalactiae (B) Amount Growth Rare Staphylococcus lugdunensis Streptococcus agalactiae (B): REACTION Ampicillin Islt ABDULKADIR <=0.25 S Penicillin G Islt ABDULKADIR <=0.06 S cefTRIAXone Islt ABDULKADIR <=0.12 S Clindamycin Islt ABDULKADIR >=1 R Clindamycin.induced Susc Islt NEG Linezolid Islt ABDULKADIR <=2 S Vancomycin Islt ABDULKADIR 0.5 S Staphylococcus lugdunensis: REACTION cefOXitin Susc Islt NEG Clindamycin Islt ABDULKADIR >=4 R Clindamycin.induced Susc Islt POS Erythromycin Islt ABDULKADIR <=0.25 S Gentamicin Islt ABDULKADIR <=0.5 S Oxacillin Susc Islt 1 S Tetracycline Islt ABDULKADIR <=1 S Vancomycin Islt ABDULKADIR 1 S Normal [facility] Comment on above: Performed By: #### L 501.080 #### [facility] [address] [place], [address] Culture, Blood (WB)on 2023 CUB ANAEROBIC BOTTLE POSITIVE GRAM STAIN = GRAM POSITIVE COCCI CLUSTERS Culture, Blood (WB) RESULTS CALLED TO Masha BORJAS 03/11/24 0827 Toya Virgen. REPORT READ BACK BY JULISSA. Culture, Blood (WB) Studies have confirmed that Anaerobic Gram Positive Cocci are routinely SUSCEPTABLE to Penicillin and generally susceptible to Beta-lactams and Beta-lactamase inhibitors, Cephalosporins, Carbapenems and Metronidazole. They are showing increased RESISTANCE to Clindamycin Culture, Blood (WB) If further studies are desired, please contact the Microbiology Laboratory within 48 hours. Ninoska gates Amount Growth Growth Normal [facility] Comment on above: Performed By: #### L 500.2500, L100.0100 #### [facility] [address] [place], [place], [id number] Wound Cultureon 03-13-2024 WC . . collected in or left hallux bone Streptococcus agalactiae (B) Amount Growth 2+ Streptococcus agalactiae (B): REACTION Ampicillin Islt ABDULKADIR <=0.25 S Penicillin G Islt ABDULKADIR <=0.06 S cefTRIAXone Islt ABDULKADIR <=0.12 S Clindamycin Islt ABDULKADIR >=1 R Clindamycin.induced Susc Islt NEG Linezolid Islt ABDULKADIR <=2 S Vancomycin Islt ABDULKADIR 0.5 S Normal [facility] Comment on above: Performed By: #### L 501.080 #### [facility] [address] [place], [place], [id number] WC . . collected in or left hallux bone Streptococcus agalactiae (B) Amount Growth 1+ Streptococcus agalactiae (B): REACTION Ampicillin Islt ABDULKADIR <=0.25 S Penicillin G Islt ABDULKADIR <=0.06 S cefTRIAXone Islt ABDULKADIR <=0.12 S Clindamycin Islt ABDULKADIR >=1 R Clindamycin.induced Susc Islt NEG Linezolid Islt ABDULKADIR <=2 S Vancomycin Islt ABDULKADIR 0.5 S Normal [facility] Comment on above: Performed By: #### L 501.080 #### [facility] [address] [place], [address] Bedside Glucoseon 03-12-2024 FINGERSTICK GLU 142 mg/dL High 74-106 [facility] Comment on above: Result Comment: FANG GEMENT OF PATIENT CARE PER NURSING PROTOCOL Performed By: #### L 501.080 #### [facility] [address] [place], [place], [id number] (877 FINGERSTICK GLU 120 mg/dL High 74-106 [facility] Comment on above: Result Comment: FANG GEMENT OF PATIENT CARE PER NURSING PROTOCOL Performed By: #### L 501.080 #### [facility] [address] [place], [address] Discharge Instructionon 02-25 Discharge Instruction [facility] Medical Records Department [address] [place] [address] Instructions for Home/Discharge Instructions 03/12/24 1153 MR#: [id number] Acct: [id number] Name: LIAN FRYE Rep #: [id number] : [id number] 58 From: Lian Morin DO PCP: Care Physician,No Primary Status:ADM IN Discharge Instructions Diet Discharge Diet: 1800 Calorie Control Diet Activity Discharge Activity: Use Walker (Use knee walker if possible) and - (Nonweightbearing on left forefoot) Follow Up Care Test Results: Test results from this visit will be discussed in further detail at your follow-up appointment, if applicable. Discharge Plan Admission Admit Date/Time: 03/09/24 13:03 Primary Reason for Your Visit: Osteomyelitis of the left great toe, cellulitis of the left toe and foot Attending Provider: Lian Morin Primary Care Provider: Care Physician,No Primary Consulting Providers: Jonah Borjas Instructions Additional Instructions / Restrictions: Patient keep dressing clean dry intact left lower extremity till follow-up. Patient will follow-up with Dr. Borjas next week for dressing change. Patient maintain nonweightbearing left lower extremity. Patient contact us if there is any strikethrough to his dressing if he gets the dressing wet. Discharge Orders/Prescriptions Prescriptions: New amoxicillin-pot clavulanate 875-125 mg tablet 1 tab PO BID Qty: 20 0RF aspirin 81 mg tablet,delayed release (DR/EC) 81 mg PO DAILY Qty: 30 0RF atorvastatin 40 mg Tablet 40 mg PO QHS Qty: 30 0RF insulin glargine-yfgn 100 unit/mL (3 mL) Insulin Pen 20 unit subcut BID Qty: 15 0RF insulin lispro [Humalog KwikPen Insulin] 100 unit/mL Insulin Pen 12 unit subcut TIDAC Qty: 15 0RF Referrals / Follow Up: Jonah Borjas DPM [Med Staff - Active Staff] - See Referral Note (His office will call you to schedule an appointment for next week) Angelito Mitchell MD [Med Staff - Diagnostic Technologist] - Within 2 Weeks Care Physician,No Primary [Primary Care Provider] - Disposition Disposition (needs filled in before D/C Order can be placed): Home, Self Care 03/12/24 1211 Lian Morin CC: DPM Dr. Jonah Borjas; No Primary Care Physician Signed Normal [facility] Gram Stainon 03-12-2024 GS . . collected in or left hallux bone Gram Stain 1+ Gram positive cocci 2+ Red Blood Cells No White Blood Cells Normal [facility] Comment on above: Performed By: #### L 501.080 #### [facility] [address] [place], [address] GS . . collected in or left hallux bone Gram Stain No organisms seen No cells seen Normal [facility] Comment on above: Performed By: #### L 501.080 #### [facility] [address] [place], [address] GS collected in or post lavage cultures Gram Stain 4+ Red Blood Cells 1+ White Blood Cells 1+ Gram positive cocci Normal [facility] Comment on above: Performed By: #### L 501.080 #### [facility] [address] [place], [address] Wound Cultureon 03-12-2024 WC left great toe Streptococcus agalactiae (B) Amount Growth 2+ Streptococcus agalactiae (B): REACTION Ampicillin Islt ABDULKADIR <=0.25 S Penicillin G Islt ABDULKADIR <=0.06 S cefTRIAXone Islt ABDULKADIR <=0.12 S Clindamycin Islt ABDULKADIR >=1 R Clindamycin.induced Susc Islt NEG Linezolid Islt ABDULKAIDR <=2 S Vancomycin Islt ABDULKADIR 0.5 S Normal [facility] Comment on above: Performed By: #### L 500.2500, L100.0100 #### [facility] [address] [place], [address] 12 Lead EKGon 03-11-2024 12 Lead EKG [facility] Cardi[facility] Services [address] [place] [address] 12 Lead EKG 03/11/24522 MR#: [id number] Acct: [id number] Name: LIAN FRYE Rep #: [id number] : 1965 58 From: Audi Ewing MD Attending Dr: Dr. Lian Morin DO Status: D IS IN Ordering Dr: Grayson Workman MD Date: 03/11/24 [facility] [facility] Sex: M C Admitted: 03/09/24 Test Reason : AM EKG Blood Pressure : / mmHG Vent. Rate : 092 BPM Atrial Rate : 092 BPM P-R Int : 142 ms QRS Dur : 082 ms QT Int : 362 ms P-R-T Axes : 063 -15 041 degrees QTc Int : 447 ms Normal sinus rhythm Normal ECG When compared with ECG of 11-JUN-2001 08:46, Vent. rate has increased BY 42 BPM Confirmed by Audi Ewing ([id number]), market editor GAYLE KEITH ([id number]) on 03/16/2024 9:24:30 AM Referred By: PATIENCE Confirmed By:Audi Ewing 03/16/24 0925 Date Audi Ewing MD CC: Dr. Grayson Workman MD; Dr. Lian Morin DO; No Primary Care Physician Signed Normal [facility] Basic Metabolic Profile (BMP )on 03-11-2024 BUN/CRE 13.2 RATIO Normal - [facility] Comment on above: Order Comment: Pre-o perative Performed By: #### L 500.3400, L100.0100, L500.2500 #### [facility] [address] [place], [address] CA,Total 8.9 mg/dL Normal 8.5-10.1 [facility] Comment on above: Order Comment: Pre-o perative Performed By: #### L 500.3400, L100.0100, L500.2500 #### [facility] [address] [place], [address] Chloride [Moles/Vol] 109 mmol/L High 98-107 [facility] Comment on above: Order Comment: Pre-o perative Performed By: #### L 500.3400, L100.0100, L500.2500 #### [facility] [address] [place], [address] CO2 [Moles/Vol] 23.0 mmol/L Normal 21.0-32.0 [facility] Comment on above: Order Comment: Pre-o perative Performed By: #### L 500.3400, L100.0100, L500.2500 #### [facility] [address] [place], [address] Creatinine [Mass/Vol] 1.29 mg/dL Normal 0.70-1.30 [facility] Comment on above: Order Comment: Pre-o perative Result Comment: The validity of the calculated GFR GFRAA in patients over 70 years has not been determined. Clinical correlation is essential. Performed By: #### L 500.3400, L100.0100, L500.2500 #### [facility] [address] [place], [address] ECRCL 76.88 ml/min Normal [facility] Comment on above: Order Comment: Pre-o perative Performed By: #### L 500.3400, L100.0100, L500.2500 #### [facility] [address] [place], [address] EST GFR - AA 74 mL/min Normal >60 [facility] Comment on above: Order Comment: Pre-o perative Result Comment: Afri can Haitian GFR Calc Performed By: #### L 500.3400, L100.0100, L500.2500 #### [facility] [address] [place], [address] GAP 6 Normal 5-15 [facility] Comment on above: Order Comment: Pre-o perative Performed By: #### L 500.3400, L100.0100, L500.2500 #### [facility] [address] [place], [address] GFR/1.73 sq M.predicted among non-blacks MDRD (S/P/Bld) [Vol rate/Area] 61 mL/min/{1.73_m2} Normal >60 [facility] Comment on above: Order Comment: Pre-o perative Result Comment: Non- GFR Calc Performed By: #### L 500.3400, L100.0100, L500.2500 #### [facility] [address] [place], [address] Glucose [Mass/Vol] 188 mg/dL High 74-106 [facility] Comment on above: Order Comment: Pre-o perative Result Comment: Fast ing Glucose result greater than or equal to 126 mg/dL suggests DIABETES MELLITUS per A.D.A. criteria. Performed By: #### L 500.3400, L100.0100, L500.2500 #### [facility] [address] [place], [address] Potassium [Moles/Vol] 3.9 mmol/L Normal 3.5-5.1 [facility] Comment on above: Order Comment: Pre-o perative Performed By: #### L 500.3400, L100.0100, L500.2500 #### [facility] [address] [place], [address] Sodium [Moles/Vol] 138 mmol/L Normal 136-145 [facility] Comment on above: Order Comment: Pre-o perative Performed By: #### L 500.3400, L100.0100, L500.2500 #### [facility] [address] [place], [address] Urea nitrogen [Mass/Vol] 17 mg/dL Normal 7-18 [facility] Comment on above: Order Comment: Pre-o perative Performed By: #### L 500.3400, L100.0100, L500.2500 #### [facility] [address] [place], [address] Bedside Glucoseon 03-11-2024 FINGERSTICK GLU 140 mg/dL High [facility]106 [facility] Comment on above: Result Comment: FANG GEMENT OF PATIENT CARE PER NURSING PROTOCOL Performed By: #### L 500.2500, L100.0100 #### [facility] [address] [place], [address] FINGERSTICK GLU 185 mg/dL High [address] [place] [address] Comment on above: Result Comment: FANG GEMENT OF PATIENT CARE PER NURSING PROTOCOL Performed By: #### L 501.080 ####[facility] [address] [place], [address] FINGERSTICK GLU 196 mg/dL High [facility]106 [facility] Comment on above: Result Comment: FANG GEMENT OF PATIENT CARE PER NURSING PROTOCOL Performed By: #### L 500.2500, L100.0100 #### [facility] [address] [place], [address] FINGERSTICK GLU 191 mg/dL [address] Comment on above: Result Comment: FANG GEMENT OF PATIENT CARE PER NURSING PROTOCOL Performed By: #### L 501.080 #### [facility] [address] [place], [address] FINGERSTICK GLU 173 mg/dL High [address] [place] [address] Comment on above: Result Comment: FANG GEMENT OF PATIENT CARE PER NURSING PROTOCOL Performed By: #### L 501.080 #### [facility] [address] [place], [address] CBC W/Diff, Automatedon 02-25 Absolute Lymph 1.64 X10 3/uL Normal 0.83-4.51 [facility] Comment on above: Performed By: #### L 500.3400, L100.0100, L500.2500 #### [facility] [address] [place], [address] Absolute Neut 7.5 X10 3/uL Normal 2.0-7.7 [facility] Comment on above: Performed By: #### L 500.3400, L100.0100, L500.2500 #### [facility] [address] [place], [address] Basophils/100 WBC (Bld) 0.4 % Normal 0-1 [facility] Comment on above: Performed By: #### L 500.3400, L100.0100, L500.2500 #### [facility] [address] [place], [address] Eosinophils/100 WBC (Bld) 1.9 % Normal 0-5 [facility] Comment on above: Performed By: #### L 500.3400, L100.0100, L500.2500 #### [facility] [address] [place], [address] Erythrocyte distribution width (RBC) [Ratio] 12.1 % Normal 11.6-14.6 [facility] Comment on above: Performed By: #### L 500.3400, L100.0100, L500.2500 #### [facility] [address] [place], [address] Hematocrit (Bld) [Volume fraction] 40.5 % Normal 40-54 [facility] Comment on above: Performed By: #### L 500.3400, L100.0100, L500.2500 #### [facility] [address] [place], [address] Hemoglobin (Bld) [Mass/Vol] 14.0 g/dL Normal 13.0-16.5 [facility] Comment on above: Performed By: #### L 500.3400, L100.0100, L500.2500 #### [facility] [address] [place], [address] IG% 0.300 Normal 0.0-0.9 [facility] Comment on above: Result Comment: IG% - Immature Granulocytes (promyelocytes, myelocytes and metamyelocytes) > 1% indicates that a LEFT SHIFT is Present. Performed By: #### L 500.3400, L100.0100, L500.2500 #### [facility] [address] [place], [address] Lymphocytes/100 WBC (Bld) 16.2 % Low 19-41 [facility] Comment on above: Performed By: #### L 500.3400, L100.0100, L500.2500 #### [facility] [address] [place], [address] MCH (RBC) [Entitic mass] 30.3 pg Normal 27.0-32.0 [facility] Comment on above: Performed By: #### L 500.3400, L100.0100, L500.2500 #### [facility] [address] [place], [address] MCHC (RBC) [Mass/Vol] 34.6 g/dL Normal 32-36 [facility] Comment on above: Performed By: #### L 500.3400, L100.0100, L500.2500 #### [facility] [address] [place], [address] MCV (RBC) [Entitic vol] 87.7 fL Normal 80-94 [facility] Comment on above: Performed By: #### L 500.3400, L100.0100, L500.2500 #### [facility] [address] [place], [address] Monocytes/100 WBC (Bld) 7.8 % Normal 0-10 [facility] Comment on above: Performed By: #### L 500.3400, L100.0100, L500.2500 #### [facility] [address] [place], [address] Neutrophils/100 WBC (Bld) 73.4 % High 47-70 [facility] Comment on above: Performed By: #### L 500.3400, L100.0100, L500.2500 #### [facility] [address] [place], [address] Nucleated RBC (Bld) [#/Vol] 0 10*3/uL Normal 0-5 [facility] Comment on above: Performed By: #### L 500.3400, L100.0100, L500.2500 #### [facility] [address] [place], [address] Platelet mean volume (Bld) [Entitic vol] 10.5 fL Normal 6.2-12.0 [facility] Comment on above: Performed By: #### L 500.3400, L100.0100, L500.2500 #### [facility] [address] [place], [address] Platelets (Bld) [#/Vol] 234 10*3/uL Normal 150-450 [facility] Comment on above: Performed By: #### L 500.3400, L100.0100, L500.2500 #### [facility] [address] [place], [address] RBC (Bld) [#/Vol] 4.62 10*6/uL Normal 4.6-6.2 [facility] Comment on above: Performed By: #### L 500.3400, L100.0100, L500.2500 #### [facility] [address] [place], [address] RDW SD 39.0 fl Normal 35.1-43.9 [facility] Comment on above: Performed By: #### L 500.3400, L100.0100, L500.2500 #### [facility] [address] [place], [address] WBC (Bld) [#/Vol] 10.1 10*3/uL Normal 4.4-11.0 [facility] Comment on above: Performed By: #### L 500.3400, L100.0100, L500.2500 #### [facility] [address] [place], [address] Foot 2 Viewson 03-11-2024 Foot 2 Views [facility] Imaging Services [address] [place] [address] Foot 2 Views MR#: [id number] Acct: [id number] Name: LIAN FRYE Rep #: [id number] : 1965 M 58 From: Gael Grijalva MD PCP: Care Physician,No Primary Status: ADM IN Study: Foot 2 Views Date of Exam: 03/11/24 Exam# [id number] Ordering Dr: Jonah Borjas DPLauri [id number] HISTORY: PAIN. Fluoroscopic support for partial first ray amputation COMPARISON: Foot radiograph March 09, 2024 TECHNIQUE: A total of 1 fluoroscopic images were saved without a radiologist present. FINDINGS: Images demonstrate amputation of the first metatarsophalangeal joint with postsurgical subcutaneous soft tissue emphysema. Total fluoroscopy time: 1 cm Cumulative air kerma: 0.0034 mGy RAD/Foot 2 Views IMPRESSION: Fluoroscopic assistance for first digit amputation at the metatarsophalangeal joint. Please see operative report for additional information. Electronically Signed: Gael Grijalva MD at 20:37 EDT , CC: DPLauri Borjas; No Primary Care Physician Traffic Lieutenant: Signed Normal [facility] Gram Stainon 03-11-2024 GS left great toe Gram Stain No White Blood Cells 2+ Red Blood Cells 2+ Gram positive cocci 1+ Epithelial cells Normal [facility] Comment on above: Performed By: #### L 500.2500, L100.0100 #### [facility] [address] [place], [address] Hemoglobin A1con 03-11-2024 HbA1c (Bld) [Mass fraction] 12.8 % High 3.8-5.6 [facility] Comment on above: Order Comment: Comme nts: Pre-operative Result Comment: Norm al < 5.7 % Prediabetic 5.7 - 6.4 % Diabetic >or= 6.5 % Please note range changes. Performed By: #### L 500.2500, L100.0100 #### [facility] [address] [place], [address] Liver Profileon 03-11-2024 Albumin [Mass/Vol] 2.7 g/dL Low 3.2-5.0 [facility] Comment on above: Order Comment: Pre-o perative Performed By: #### L 500.3400, L100.0100, L500.2500 #### [facility] [address] [place], [address] ALK P 32 U/L Low 45-117 [facility] Comment on above: Order Comment: Pre-o perative Performed By: #### L 500.3400, L100.0100, L500.2500 #### [facility] [address] [place], [address] ALT [Catalytic activity/Vol] 16 U/L Normal 16-61 [facility] Comment on above: Order Comment: Pre-o perative Performed By: #### L 500.3400, L100.0100, L500.2500 #### [facility] [address] [place], [address] AST [Catalytic activity/Vol] 15 U/L Normal 15-37 [facility] Comment on above: Order Comment: Pre-o perative Performed By: #### L 500.3400, L100.0100, L500.2500 #### [facility] [address] [place], [address] Bilirubin [Mass/Vol] 0.50 mg/dL Normal 0.20-1.00 [facility] Comment on above: Order Comment: Pre-o perative Result Comment: For patients on eltrombopag therapy, use of Dimension [place] TBIL is not recommended. Performed By: #### L 500.3400, L100.0100, L500.2500 #### [facility] [address] [place], [address] Bilirubin.direct [Mass/Vol] 0.17 mg/dL Normal 0.00-0.30 [facility] Comment on above: Order Comment: Pre-o perative Performed By: #### L 500.3400, L100.0100, L500.2500 #### [facility] [address] [place], [address] Globulin (S) [Mass/Vol] 4.3 g/dL High 2.2-4.2 [facility] Comment on above: Order Comment: Pre-o perative Performed By: #### L 500.3400, L100.0100, L500.2500 #### [facility] [address] [place], [address] T PROT 7.0 g/dL Normal 6.4-8.2 [facility] Comment on above: Order Comment: Pre-o perative Performed By: #### L 500.3400, L100.0100, L500.2500 #### [facility] [address] [place], [address] Operative Reporton 4 Operative Report [facility] Medical Records Department [address] [place] [address] Operative Report 03/11/24 1518 MR#: [id number] Acct: [id number] Name: LIAN FRYE Rep #: [id number] : 1965 58 From: Jonah Borjas DPM PCP: Care Physician,No Primary Status:ADM IN Location: MS3 MI602-5 Problems Associated Problem List Diagnoses (1) Non-pressure chronic ulcer of other part of left foot with necrosis of bone: (2) Other acute osteomyelitis, left ankle and foot: (3) Type 2 diabetes mellitus with diabetic polyneuropathy: Report of Operation Date of Procedure: 03/11/24 Pre-Operative Diagnosis: 1) Left Hallux Osteomyelitis Post-Operative Diagnosis: Same Surgery/Procedure Performed:: Left hallux amputation at [facility] Description of Surgical Findings:: Patient admitted for left hallux white gangrene and acute diabetic foot infection. MRI confirmed osteomyelitis distal proximal phalanx. Recommended hallux amputation patient and patient wished to proceed. Arterial studies demonstrated adequate blood flow to left lower extremity. Surgeon: Jonah Borjas lactation coordinator: None Type of Anesthesia: MAC Special Medications: 30cc 0.5% marcaine plain Specimen's removed: left hallux bone and tissue culture Drains: none Estimated Blood Loss (mL): minimal Description of Procedure: Patient brought back the operating placed comfortably in supine position. Patient induced under MAC anesthesia. All osseous prominences offloaded prevent any compression neuropraxia's. Left well- padded left leg ankle tourniquet applied. Left lower extremity scrubbed prepped and draped using typical aseptic fashion. Once cleared by anesthesia a dorsal rec incision lateral approach was drawn and made with a 10 blade down to full-thickness down to level bone through epidermis dermis and subcutaneous tissue down to level bone. The hallux was then disarticulated at the level of the metatarsal phalangeal joint. Moderate bleeding noted to the incisional site. Additional debridement is performed with bone rongeurs of any nonviable necrotic tissue. No residual evidence of deep purulence or acute deep tissue breakdown. Site was pulse lavage with low-pressure pulse lavage using 3 L of normal sterile saline. Post lavage swab cultures were taken. Left hallux was passed back table and sent to microbiology for bone and tissue culture. Incisional site was closed primarily using simple interrupted 3-0 nylon. Site was dressed with Betadine Adaptic 4 x 4's Kerlix Cliff bandage. Patient will be transferred back to floor continue to receive IV antibiotics. Patient tolerated procedure and anesthesia well apparent satisfactory condition. No complications Findings there is some diminished bleeding to incisional site. Will keep an eye incision consider vascular referral if need be. Admit VTE Documentation VTE Mechan Device Prophylaxis: SCD's 03/11/24 1522 Cosigner Signature (if applicable): CC: DPLauri Borjas; No Primary Care Physician Signed Normal [facility] Partial Thromboplast Timeon 03-11-2024 aPTT Coag (Bld) [Time] 29.9 s Normal 24.1-36.2 [facility] Comment on above: Order Comment: Comme nts: Pre-operative Performed By: #### L 500.2500, L100.0100 #### [facility] [address] [place], [address] Prothrombin Time w/INRon INR Coag (PPP) [Relative time] 1.2 {INR} Normal [facility] Comment on above: Order Comment: Comme nts: Pre-operative Performed By: #### L 500.2500, L100.0100 #### [facility] [address] [place], [address] PT Coag (PPP) [Time] 14.7 s Normal 11.7-14.9 [facility] Comment on above: Order Comment: Comme nts: Pre-operative Performed By: #### L 500.2500, L100.0100 #### [facility] [address] [place], [address] Basic Metabolic Profile (BMP )on 03-10-2024 BUN/CRE 14.5 RATIO Normal 10-20 [facility] Comment on above: Performed By: #### L 501.080 #### [facility] [address] [place], [address] CA,Total 8.8 mg/dL Normal 8.5-10.1 [facility] Comment on above: Performed By: #### L 501.080 #### [facility] [address] [place], [address] Chloride [Moles/Vol] 106 mmol/L Normal 98-107 [facility] Comment on above: Performed By: #### L 501.080 #### [facility] [address] [place], [address] CO2 [Moles/Vol] 26.0 mmol/L Normal 21.0-32.0 [facility] Comment on above: Performed By: #### L 501.080 #### [facility] [address] [place], [address] Creatinine [Mass/Vol] 1.38 mg/dL High 0.70-1.30 [facility] Comment on above: Result Comment: The validity of the calculated GFR GFRAA in patients over 70 years has not been determined. Clinical correlation is essential. Performed By: #### L 501.080 #### [facility] [address] [place], [address] ECRCL 71.86 ml/min Normal [facility] Comment on above: Performed By: #### L 501.080 #### [facility] [address] [place], [address] EST GFR - AA 68 mL/min Normal >60 [facility] Comment on above: Result Comment: Afri can Haitian GFR Calc Performed By: #### L 501.080 #### [facility] [address] [place], [address] GAP 6 Normal 5-15 [facility] Comment on above: Performed By: #### L 501.080 #### [facility] [address] [place], [address] GFR/1.73 sq M.predicted among non-blacks MDRD (S/P/Bld) [Vol rate/Area] 56 mL/min/{1.73_m2} Low >60 [facility] Comment on above: Result Comment: Non- GFR Calc Performed By: #### L 501.080 #### [facility] [address] [place], [address] Glucose [Mass/Vol] 153 mg/dL High 74-106 [facility] Comment on above: Result Comment: Fast ing Glucose result greater than or equal to 126 mg/dL suggests DIABETES MELLITUS per A.D.A. criteria. Performed By: #### L 501.080 #### [facility] [address] [place], [address] Potassium [Moles/Vol] 3.7 mmol/L Normal 3.5-5.1 [facility] Comment on above: Performed By: #### L 501.080 #### [facility] [address] [place], [address] Sodium [Moles/Vol] 138 mmol/L Normal 136-145 [facility] Comment on above: Performed By: #### L 501.080 #### [facility] [address] [place], [address] Urea nitrogen [Mass/Vol] 20 mg/dL High 7-18 [facility] Comment on above: Performed By: #### L 501.080 #### [facility] [address] [place], [address] Bedside Glucoseon 03-10-2024 FINGERSTICK GLU 147 mg/dL High 74-106 [facility] Comment on above: Result Comment: FANG GEMENT OF PATIENT CARE PER NURSING PROTOCOL Performed By: #### L 500.2500, L100.0100 #### [facility] [address] [place], [address] FINGERSTICK GLU 146 mg/dL High 74-106 [facility] Comment on above: Result Comment: FANG GEMENT OF PATIENT CARE PER NURSING PROTOCOL Performed By: #### L 500.2500, L100.0100 #### [facility] [address] [place], [address] FINGERSTICK GLU 148 mg/dL High 74-106 [facility] Comment on above: Result Comment: FANG GEMENT OF PATIENT CARE PER NURSING PROTOCOL Performed By: #### L 500.2500, L100.0100 #### [facility] [address] [place], [address] FINGERSTICK GLU 162 mg/dL High 74-106 [facility] Comment on above: Result Comment: FANG GEMENT OF PATIENT CARE PER NURSING PROTOCOL Performed By: #### L 501.080 #### [facility] [address] [place], [address] CBC W/Diff, Automatedon 05-1 -2023 Absolute Lymph 1.69 X10 3/uL Normal 0.83-4.51 [facility] Comment on above: Performed By: #### L 501.080 #### [facility] [address] [place], [address] Absolute Neut 8.4 X10 3/uL High 2.0-7.7 [facility] Comment on above: Performed By: #### L 501.080 #### [facility] [address] [place], [address] Basophils/100 WBC (Bld) 0.3 % Normal 0-1 [facility] Comment on above: Performed By: #### L 501.080 #### [facility] [address] [place], [address] Eosinophils/100 WBC (Bld) 1.4 % Normal 0-5 [facility] Comment on above: Performed By: #### L 501.080 #### [facility] [address] [place], [address] Erythrocyte distribution width (RBC) [Ratio] 11.9 % Normal 11.6-14.6 [facility] Comment on above: Performed By: #### L 501.080 #### [facility] [address] [place], [address] Hematocrit (Bld) [Volume fraction] 41.8 % Normal 40-54 [facility] Comment on above: Performed By: #### L 501.080 #### [facility] [address] [place], [address] Hemoglobin (Bld) [Mass/Vol] 14.4 g/dL Normal 13.0-16.5 [facility] Comment on above: Performed By: #### L 501.080 #### [facility] [address] [place], [address] IG% 0.300 Normal 0.0-0.9 [facility] Comment on above: Result Comment: IG% - Immature Granulocytes (promyelocytes, myelocytes and metamyelocytes) > 1% indicates that a LEFT SHIFT is Present. Performed By: #### L 501.080 #### [facility] [address] [place], [address] Lymphocytes/100 WBC (Bld) 15.0 % Low 19-41 [facility] Comment on above: Performed By: #### L 501.080 #### [facility] [address] [place], [address] MCH (RBC) [Entitic mass] 30.3 pg Normal 27.0-32.0 [facility] Comment on above: Performed By: #### L 501.080 #### [facility] [address] [place], [address] MCHC (RBC) [Mass/Vol] 34.4 g/dL Normal 32-36 [facility] Comment on above: Performed By: #### L 501.080 #### [facility] [address] [place], [address] MCV (RBC) [Entitic vol] 87.8 fL Normal 80-94 [facility] Comment on above: Performed By: #### L 501.080 #### [facility] [address] [place], [address] Monocytes/100 WBC (Bld) 8.2 % Normal 0-10 [facility] Comment on above: Performed By: #### L 501.080 #### [facility] [address] [place], [address] Neutrophils/100 WBC (Bld) 74.8 % High 47-70 [facility] Comment on above: Performed By: #### L 501.080 #### [facility] [address] [place], [address] Nucleated RBC (Bld) [#/Vol] 0 10*3/uL Normal 0-5 [facility] Comment on above: Performed By: #### L 501.080 #### [facility] [address] [place], [address] Platelet mean volume (Bld) [Entitic vol] 11.5 fL Normal 6.2-12.0 [facility] Comment on above: Performed By: #### L 501.080 #### [facility] [address] [place], [address] Platelets (Bld) [#/Vol] 255 10*3/uL Normal 150-450 [facility] Comment on above: Performed By: #### L 501.080 #### [facility] [address] [place], [address] RBC (Bld) [#/Vol] 4.76 10*6/uL Normal 4.6-6.2 [facility] Comment on above: Performed By: #### L 501.080 #### [facility] [address] [place], [address] RDW SD 38.5 fl Normal 35.1-43.9 [facility] Comment on above: Performed By: #### L 501.080 #### [facility] [address] [place], [address] WBC (Bld) [#/Vol] 11.3 10*3/uL High 4.4-11.0 [facility] Comment on above: Performed By: #### L 501.080 #### [facility] [address] [place], [address] Hemoglobin A1con 03-10-2024 HbA1c (Bld) [Mass fraction] 13.0 % High 3.8-5.6 [facility] Comment on above: Result Comment: Norm al < 5.7 % Prediabetic 5.7 - 6.4 % Diabetic >or= 6.5 % Please note range changes. Performed By: #### L 501.9985 #### [facility] [address] [place], [address] Lipid Profileon 03-10-2024 Cholesterol [Mass/Vol] 213 mg/dL High 200 [facility] Comment on above: Result Comment: <200 mg/dL Desirable 200-240 mg/dL Borderline >240 mg/dL High Risk Performed By: #### L 501.080 #### [facility] [address] [place], [address] Cholesterol in HDL [Mass/Vol] 58 mg/dL Normal [facility] Comment on above: Result Comment: The drugs N-Acetylcysteine and Metamizole may falsely depress this assay. Reference Range HDL <40 mg/dL Low HDL Cholesterol HDL >or= 60 mg/dL High HDL Cholesterol Performed By: #### L 501.080 #### [facility] [address] [place], [address] Cholesterol in LDL [Mass/Vol] 135 mg/dL High 0-130 [facility] Comment on above: Performed By: #### L 501.080 #### [facility] [address] [place], [address] Cholesterol in VLDL [Mass/Vol] 20 mg/dL Normal 5-40 [facility] Comment on above: Performed By: #### L 501.080 #### [facility] [address] [place], [place], [address] Triglyceride [Mass/Vol] 102 mg/dL Normal [facility] Comment on above: Result Comment: The drugs N-Acetylcysteine and Metamizole may falsely depress this assay. Serum Triglycerides Reference Interval Normal <150 mg/dL Borderline high 150 - 199 mg/dL High 200 - 499 mg/dL Very High > or = 500 mg/dL Performed By: #### L 501.080 #### [facility] [address] [place], [address] Lower Ext Art Exam w/o Exerc sujit 03-10-2024 Lower Ext Art Exam w/o Exercis [facility] [address] [place] [address] Lower Ext Art Exam w/o Exercis 03/11/24 1032 MR#: [id number] Acct: [id number] Name: UDAYLIAN Hair Rep #: [id number] : 1965 58 From: Jonathon Parsons MD Attending Dr: Dr. Lian Morin, DO Status: A DM IN Ordering Dr: Jonah Borjas DPM Date: 03/10/24 Location: ID3 Sex: M C Admitted: 03/09/24 Reason For Study: Left toe ulcer Procedure A bilateral lower extremity continuous wave Doppler with analog waveform analysis,segmental pressures,and ankle brachial indexes without exercise. Left Segmental Pressures Left brachial= 153mmHg. Left posterior tibial artery = >254mmHg. Left dorsalis pedis artery = 184mmHg. The left dorsalis pedis waveforms are triphasic. The left posterior tibial artery waveforms are triphasic. Right Segmental Pressures Right posterior tibial artery = >254mmHg. Right dorsalis pedis artery = 219mmHg. Right digit = 152 mmHg. The right dorsalis pedis waveforms are triphasic. The right posterior tibial artery waveforms are triphasic. Indices The right ankle brachial index by the dorsalis pedis is 1.43. The right ankle brachial index by the posterior tibial artery is NC. The right digital-brachial index is 0.99. The left ankle brachial index by the dorsalis pedis is 1.20. The left ankle brachial index by the posterior tibial artery is NC. VL/Lower Ext Art Exam w/o Exercis Interpretation Summary Right MELO 1.43, artificially elevated. TBI and Doppler/PVR waveforms of the right leg normal at rest. Left MELO 1.2, normal. Doppler/PVR waveforms of the left leg normal at rest. Unable to obtain TBI due to dressings. Ordering Physician: Jonah Borjas Performed By: Cem Dumont, T 03/11/241814 Date Jonathon Parsons MD CC: DPM Dr. Jonah Borjas; Dr. Lian Morin, DO; No Primary Care Physician Date Dictated: 03/11/24 1032 Date Transcribed: 03/11/241814 Traffic Lieutenant: Signed Normal [facility] Lower Ext/No Jt/w/oon 2023 Lower Ext/No Jt/w/o [facility] Services [address] [place], [place] [id number] Lower Ext/No Jt/w/o MR#: [id number] Acct: [id number] Name: LIAN FRYE Rep #: [id number] : 1965 M 58 From: Javier See MD PCP: Care Physician,No Primary Status: ADM IN Study: Lower Ext/No Jt/w/o Date of Exam: 03/10/24 Exam# [id number] Ordering Dr: Jonah Borjas DPM [id number] STUDY: MRI LEFT FOREFOOT WITHOUT CONTRAST REASON FOR EXAM: Male, 58 years old. Pulled off 1st digit nail x 3 weeks, great toe appears red and swollen. Evaluate for left foot osteomyelitis. TECHNIQUE: Standardized fat and water weighted pulse sequences were obtained in all 3 orthogonal planes. COMPARISON: Left foot radiographs dated 03/09/2024. FINDINGS: There is a wound at the nailbed of the great toe. There is geographic and curvilinear signal abnormality at the base of the distal phalanx of the great toe (coronal T2 series 11 image 12; sagittal STIR series 10 image 6), concerning for nondisplaced fracture versus avascular necrosis. There is intermediate T1 and increased STIR marrow signal in the middle and distal phalanges of the great toe, concerning for marrow stress edema versus early developing osteomyelitis. Normal bone marrow of the remainder of the phalanges, metatarsals, and and visualized distal tarsal row, without fracture, periostitis, erosions or reactive bone edema. Normal sesamoids without sesamoiditis, fracture or avascular necrosis. Normal joint spaces, without effusions. There are no extraarticular fluid collections. Normal visualized Lisfranc joints and normal Lisfranc ligament. Normal intermetatarsal spaces without intermetatarsal (Mills) neuroma or bursitis. Normal visualized extensor digitorum longus, extensor hallucis longus, flexor digitorum brevis and flexor hallucis longus tendons. Normal visualized plantar fascia without fasciitis, fibromatosis or tear. Normal intrinsic muscles of the foot, without soft tissue masses or evidence of denervation atrophy. There is moderate subcutaneous soft tissue edema along the dorsal aspect of the foot. MRI/Lower Ext/No Jt/w/o IMPRESSION: Great toe nailbed wound. Geographic and curvilinear signal abnormality at the base of the distal phalanx of the great toe, concerning for nondisplaced fracture versus avascular necrosis. Intermediate T1 and increased STIR marrow signal in the middle and distal phalanges of the great toe, concerning for marrow stress edema versus early developing osteomyelitis. Continued follow-up is advised. Moderate subcutaneous soft tissue edema along the dorsal aspect of the foot. Electronically Signed: Javier See MD at 15:55 EDT Reading Location ID and State: [facility] / [place] , Service support , CC: DPLauri Borjas; No Primary Care Physician Traffic Lieutenant: Signed Normal [facility] MRSA Wound DNA by PCRon 02-25 MRSA DNA ASSAY Negative Normal Negative [facility] Comment on above: Order Comment: left great toe Performed By: #### L 500.2500, L100.0100 #### [facility] [address] [place], [address] SA DNA ASSAY Negative Normal Negative [facility] Comment on above: Order Comment: left great toe Performed By: #### L 500.2500, L100.0100 #### [facility] [address] [place], [address] Absolute lymphocyte countOrd ered By: ED PROVIDER on 03-09-2024 Lymphocytes Auto (Unsp spec) [#/Vol] 1.07 10*3/uL 0.83-4.51 [facility] Automated lymphocyte count a s percentage of total leukocytesOrdered By: ED PROVIDER on 03-09-2024 Lymphocytes/100 WBC Auto (Unsp spec) 7.5 % 19-41 [facility] Basic Metabolic Profile (BMP )on 03-09-2024 BUN/CRE 11.7 RATIO Normal 10-20 [facility] Comment on above: Performed By: #### L 500.2500, L100.0100 #### [facility] [address] [place], [address] CA,Total 9.6 mg/dL Normal 8.5-10.1 [facility] Comment on above: Performed By: #### L 500.2500, L100.0100 #### [facility] [address] [place], [address] Chloride [Moles/Vol] 94 mmol/L Low 98-107 [facility] Comment on above: Performed By: #### L 500.2500, L100.0100 #### [facility] [address] [place], [address] CO2 [Moles/Vol] 29.0 mmol/L Normal 21.0-32.0 [facility] Comment on above: Performed By: #### L 500.2500, L100.0100 #### [facility] [address] [place], [address] Creatinine [Mass/Vol] 1.37 mg/dL High 0.70-1.30 [facility] Comment on above: Result Comment: The validity of the calculated GFR GFRAA in patients over 70 years has not been determined. Clinical correlation is essential. Performed By: #### L 500.2500, L100.0100 #### [facility] [address] [place], [address] ECRCL 71.74 ml/min Normal [facility] Comment on above: Performed By: #### L 500.2500, L100.0100 #### [facility] [address] [place], [address] EST GFR - AA 69 mL/min Normal >60 [facility] Comment on above: Result Comment: Afri can Haitian GFR Calc Performed By: #### L 500.2500, L100.0100 #### [facility] [address] [place], [address] GAP 5 Normal 5-15 [facility] Comment on above: Performed By: #### L 500.2500, L100.0100 #### [facility] [address] [place], [address] GFR/1.73 sq M.predicted among non-blacks MDRD (S/P/Bld) [Vol rate/Area] 57 mL/min/{1.73_m2} Low >60 [facility] Comment on above: Result Comment: Non- GFR Calc Performed By: #### L 500.2500, L100.0100 #### [facility] [address] [place], [address] Glucose [Mass/Vol] 651 mg/dL Invalid Interpretation Code 74-106 [facility] Comment on above: Result Comment: Crit ical Result(s) Called at: 11:41:01 03/09/2024 by: Robert Lin RN (ER). Results read back by same. Glucose result greater than or equal to 200 mg/dL suggests DIABETES MELLITUS per A.D.A. criteria. Performed By: #### L 500.2500, L100.0100 #### [facility] [address] [place], [address] Potassium [Moles/Vol] 4.4 mmol/L Normal 3.5-5.1 [facility] Comment on above: Performed By: #### L 500.2500, L100.0100 #### [facility] [address] [place], [address] Sodium [Moles/Vol] 128 mmol/L Low 136-145 [facility] Comment on above: Performed By: #### L 500.2500, L100.0100 #### [facility] [address] [place], [address] Urea nitrogen [Mass/Vol] 16 mg/dL Normal 7-18 [facility] Comment on above: Performed By: #### L 500.2500, L100.0100 #### [facility] [address] [place], [address] Basophil percentageOrdered B y: ED PROVIDER on 03-09-2024 Basophils/100 WBC (Bld) 0.3 % 0-1 [facility] Eosinophils/100 WBC (Bld) 0.1 % 0-5 [facility] Hemoglobin (Bld) [Mass/Vol] 15.1 g/dL 13.0-16.5 [facility] Monocytes/100 WBC (Bld) 5.4 % 0-10 [facility] Neutrophils (Bld) [#/Vol] 12.4 10*3/uL 2.0-7.7 [facility] Neutrophils/100 WBC (Bld) 86.4 % 47-70 [facility] WBC (Bld) [#/Vol] 14.3 10*3/uL 4.4-11.0 [facility] Basophil percentageOrdered B y: Remus Ungur on 03-09-2024 Chloride [Moles/Vol] 94 mmol/L 98-107 [facility] Glucose [Mass/Vol] 651 mg/dL 74-106 [facility] Comment on above: Critical Result(s) C alled at: 11:41:01 03/09/2024 by: Robert Reed to Riley DEAN (ER). Results read back by same.Glucose result greater than or equal to 200 mg/dLsuggests DIABETES MELLITUS per A.D.A. criteria. Potassium [Moles/Vol] 4.4 mmol/L 3.5-5.1 [facility] Sodium [Moles/Vol] 128 mmol/L 136-145 [facility] Bedside Glucoseon 03-09-2024 FINGERSTICK GLU 221 mg/dL High 74-106 [facility] Comment on above: Result Comment: FANG GEMENT OF PATIENT CARE PER NURSING PROTOCOL Performed By: #### L 500.2500, L100.0100 #### [facility] [address] [place], [address] FINGERSTICK GLU 142 mg/dL High 74-106 [facility] Comment on above: Result Comment: FANG GEMENT OF PATIENT CARE PER NURSING PROTOCOL Performed By: #### L 500.2500, L100.0100 #### [facility] [address] [place], [address] FINGERSTICK GLU 189 mg/dL High 74-106 [facility] Comment on above: Result Comment: FANG GARCIA OF PATIENT CARE PER NURSING PROTOCOL Performed By: #### L 500.2500, L100.0100 #### [facility] [address] [place], [address] CBC W/Diff, Automatedon 05-10 30-2023 Absolute Lymph 1.07 X10 3/uL Normal 0.83-4.51 [facility] Comment on above: Performed By: #### L 500.2500, L100.0100 #### [facility] [address] [place], [address] Absolute Neut 12.4 X10 3/uL High 2.0-7.7 [facility] Comment on above: Performed By: #### L 500.2500, L100.0100 #### [facility] [address] [place], [address] Basophils/100 WBC (Bld) 0.3 % Normal 0-1 [facility] Comment on above: Performed By: #### L 500.2500, L100.0100 #### [facility] [address] [place], [address] Eosinophils/100 WBC (Bld) 0.1 % Normal 0-5 [facility] Comment on above: Performed By: #### L 500.2500, L100.0100 #### [facility] [address] [place], [address] Erythrocyte distribution width (RBC) [Ratio] 12.0 % Normal 11.6-14.6 [facility] Comment on above: Performed By: #### L 500.2500, L100.0100 #### [facility] [address] [place], [address] Hematocrit (Bld) [Volume fraction] 43.9 % Normal 40-54 [facility] Comment on above: Performed By: #### L 500.2500, L100.0100 #### [facility] [address] [place], [address] Hemoglobin (Bld) [Mass/Vol] 15.1 g/dL Normal 13.0-16.5 [facility] Comment on above: Performed By: #### L 500.2500, L100.0100 #### [facility] [address] [place], [address] IG% 0.300 Normal 0.0-0.9 [facility] Comment on above: Result Comment: IG% - Immature Granulocytes (promyelocytes, myelocytes and metamyelocytes) > 1% indicates that a LEFT SHIFT is Present. Performed By: #### L 500.2500, L100.0100 #### [facility] [address] [place], [address] Lymphocytes/100 WBC (Bld) 7.5 % Low 19-41 [facility] Comment on above: Performed By: #### L 500.2500, L100.0100 #### [facility] [address] [place], [address] MCH (RBC) [Entitic mass] 30.5 pg Normal 27.0-32.0 [facility] Comment on above: Performed By: #### L 500.2500, L100.0100 #### [facility] [address] [place], [address] MCHC (RBC) [Mass/Vol] 34.4 g/dL Normal 32-36 [facility] Comment on above: Performed By: #### L 500.2500, L100.0100 #### [facility] [address] [place], [address] MCV (RBC) [Entitic vol] 88.7 fL Normal 80-94 [facility] Comment on above: Performed By: #### L 500.2500, L100.0100 #### [facility] [address] [place], [address] Monocytes/100 WBC (Bld) 5.4 % Normal 0-10 [facility] Comment on above: Performed By: #### L 500.2500, L100.0100 #### [facility] [address] [place], [address] Neutrophils/100 WBC (Bld) 86.4 % High 47-70 [facility] Comment on above: Performed By: #### L 500.2500, L100.0100 #### [facility] [address] [place], [address] Nucleated RBC (Bld) [#/Vol] 0 10*3/uL Normal 0-5 [facility] Comment on above: Performed By: #### L 500.2500, L100.0100 #### [facility] [address] [place], [address] Platelet mean volume (Bld) [Entitic vol] 11.1 fL Normal 6.2-12.0 [facility] Comment on above: Performed By: #### L 500.2500, L100.0100 #### [facility] [address] [place], [address] Platelets (Bld) [#/Vol] 263 10*3/uL Normal 150-450 [facility] Comment on above: Performed By: #### L 500.2500, L100.0100 #### [facility] [address] [place], [address] RBC (Bld) [#/Vol] 4.95 10*6/uL Normal 4.6-6.2 [facility] Comment on above: Performed By: #### L 500.2500, L100.0100 #### [facility] [address] [place], [address] RDW SD 38.9 fl Normal 35.1-43.9 [facility] Comment on above: Performed By: #### L 500.2500, L100.0100 #### [facility] [address] [place], [address] WBC (Bld) [#/Vol] 14.3 10*3/uL High 4.4-11.0 [facility] Comment on above: Performed By: #### L 500.2500, L100.0100 #### [facility] [address] [place], [address] CRPon 03-09-2024 C-REACTIVE PROT 67.60 mg/L High 0.0-3.0 [facility] Comment on above: Result Comment: C-Re active Protein (CRP) provides useful information for the diagnosis, therapy and monitoring of inflammatory processes and associated diseases. For the evaluation of Relative Risk for Cardiovascular Disease, a High Sensitivity CRP (HSCRP) should be ordered. Performed By: #### L 500.2500, L100.0100 #### [facility] [address] [place], [address] Determination of erythrocyte mean corpuscular volume (MCV)Ordered By: ED PROVIDER on 03-09-2024 MCV (RBC) [Entitic vol] 88.7 fL 80-94 [facility] Emergency Department Summary on 03-09-2024 Emergency Department Summary [facility] Medical Records Department [address] [place] [address] Emergency Department Summary 03/09/24 MR#: [id number] Acct: [id number] Name: LIAN FRYE Rep #: [id number] : 1965 58 From: Reba Soto DO PCP: Care Physician,No Primary Status:REG ER Location: ED HPI History of Present Illness Chief Complaint: Cellulitis Detail of Chief Complaint: Cellulitis to left leg Informant: patient Narrative Narrative: Patient presents to the emergency department complaint of redness and swelling to his left leg. Patient tells me that 2 months ago he came home from work and noted some blood on his sock and when he pulled his sock off his toenail was barely hanging on so he twisted it and pulled it off. 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 Saucedo for him and keep it clean. About a week ago he started noticing some redness up the foot and up the leg. He was advised to come in and get evaluated. Patient tells me that he has not seen a doctor in over 20 years. 20 years ago he was told he was diabetic and doctor wanted to put him on insulin and he never went back. Denies any other medical history. He has had some chills but no fever. PFSH PFSH Home Medications NK 03/09/24 [History Last Taken Unknown] Allergy/AdvReac Type Severity Reaction Status Date / Time No Known Allergies Allergy Verified 03/09/24 10:14 Social History Smoking Status: Never smoker ROS ROS ED Review of Systems ROS Unobtainable: other Constitutional Constitutional ED: Reports lethargy; Denies chills, fever(s), sweats or weight loss Eyes Eyes: Denies blurry vision, change in vision or diplopia ENT ENT ED: Denies rhinorrhea or sore throat Cardiovascular Cardiovascular: Denies chest pain, orthopnea or racing heartbeat Respiratory/Chest Respiratory/Chest: Denies cough, dyspnea, dyspnea on exertion, orthopnea or sputum Gastrointestinal Gastrointestinal: Denies abdominal pain, diarrhea, nausea or vomiting Genitourinary Genitourinary ED: Denies dysuria, hematuria or urinary frequency Musculoskeletal Musculoskeletal: Reports other Details: Right foot redness and swelling ; Denies arthralgias, back pain, myalgias or neck pain Integumentary Denies abscess, Abrasions or rash Neurologic Neurologic: Denies headache(s) or weakness Psychiatric Psychiatric: Denies anxiety, depression or suicidal thoughts Endocrine Endocrinology: Denies polydipsia, polyphagia or polyuria Hematologic/Lymphatic Hematologic/Lymphatic: Denies easy bleeding, easy bruising or lymphadenopathy Allergic/Immunologic Allergic/Immunologic ED: Denies mouth swelling, tongue swelling or urticaria EXAM Physical Exam Const Vital Signs: 03/09/24 10:15 03/09/24 11:16 Temperature 97 F L 97.6 F L Temperature Source Temporal Oral Pulse Rate 112 H 89 Respiratory Rate 18 20 H Blood Pressure 137/77 H 148/67 H Blood Pressure Mean 97 94 Pulse Ox 98 97 Oxygen Delivery Method Room Air Room Air Positive well nourished and well developed General Appearance ED: well developed and NAD HEENT Reports TM's clear and moist mucous membranes normocephalic and atraumatic; Negative for trauma or tenderness Tympanic Membrane ED: Yes TM's clear Eyes PERRL and EOMs intact bilaterally General Eye ED: Negative for pale conjunctiva or scleral icterus Neck no lymphadenopathy, supple and no JVD General: Negative for tenderness Chest Wall inspection of chest normal and palpation of chest normal Chest: Negative for tenderness Resp normal respiratory effort and clear to auscultation bilaterally Effort and Inspection: Negative for respiratory distress or pain with movement Auscultation: Negative for rhonchi, wheezes or diminished lung sounds Cardio regular rate, regular rhythm, S1 normal heart sound, S2 normal heart sound and no murmurs Peripheral Pulses: pulses 2+ throughout GI normal to inspection, nondistended, normoactive bowel sounds, soft to palpation, non-tender, non- distended and no masses Back/Spine no CVA tenderness and no thoracic nor lumbar tenderness Extremity Extremity Narrative: Right lower extremity-patient has a missing left great toenail. He has diffuse erythema to the toe with tenderness to palpation. No significant drainage noted. Does have cellulitic changes to the dorsum of the foot and extending up the anterior rhodes. General Extremety ED: Negative for edema General Extremity: Negative for edema Neuro oriented x3, CN's II-XII intact bilaterally, no sensory deficits noted and gait normal Sensorium / Orientation: awake, alert, oriented to person, oriented to place and oriented to time Motor Exam: strength 5/5 throughout and strength abnormal Psych mental status grossly normal Skin no rashes or lesions noted and no wounds MD (more content not included)... Normal [facility] Erythrocyte Sed Rateon 03-09 SED RATE 8 mm/hr Normal 0-20 [facility] Comment on above: Performed By: #### L 500.2500, L100.0100 #### [facility] [address] [place], [address] Erythrocyte distribution wid th ratioOrdered By: ED PROVIDER on 03-09-2024 Erythrocyte distribution width (RBC) [Ratio] 12.0 % 11.6-14.6 [facility] Erythrocyte distribution wid th standard deviationOrdered By: ED PROVIDER on 03-09-2024 Erythrocyte distribution width (RBC) [Entitic vol] 38.9 fL 35.1-43.9 [facility] Erythrocyte sedimentation ra teOrdered By: Reba Soto on 03-09-2024 ESR (Bld) [Velocity] 8 mm/h 0-20 [facility] Foot min 3 Viewson 4 Foot min 3 Views [facility] Imaging Services [address] [place] [address] Foot min 3 Views MR#: [id number] Acct: [id number] Name: LIAN FRYE Rep #: [id number] : 1965 M 58 From: Javier See MD PCP: Care Physician,No Primary Status: REG ER Study: Foot min 3 Views Date of Exam: 03/09/24 Exam# [id number] Ordering Dr: Reba Soto DO [id number] STUDY: X-RAY - LEFT FOOT CLINICAL: Male, 58 years old. Great toe infection. TECHNIQUE: 3 views of the left foot. COMPARISON: None. FINDINGS: Intact talus, calcaneus, and tarsal bones. There is a tiny posterior calcaneal tuberosity spur. Normal visualized subtalar, talonavicular, calcaneocuboid, tarsal and tarsometatarsal articulations. Normal metatarsi. Normal metatarsophalangeal joint of the great toe. Normal tibial and fibular sesamoid bones. Normal interphalangeal joint of the great toe. Normal phalanges of the great toe. Normal second through fifth metatarsophalangeal joints. Normal interphalangeal joints and phalanges of the lesser toes. The soft tissue structures are unremarkable. There is no demonstrated fracture. RAD/Foot min 3 Views IMPRESSION: Tiny posterior calcaneal tuberosity spur. Electronically Signed: Javier See MD at 12:31 EDT Reading Location ID and State: [facility] / [place] , Service support , CC: Dr. Reba Soto DO; No Primary Care Physician Traffic Lieutenant: Signed Normal [facility] H AND P Exam - Hospitaliston 03-09-2024 H&P Exam - Hospitalist [facility] Medical Records Department [address] [place] [address] H P Exam - Hospitalist 03/09/241947 MR#: [id number] Acct: [id number] Name: LIAN FRYE Rep #: [id number] : 1965 58 From: Lian Morin DO PCP: Care Physician,No Primary Status:ADM IN Location: [facility] SI[facility]-0 HPI - General General Date of Admission: 03/09/24 Date of Service: 03/09/24 Chief Complaint: Left foot and lower leg redness HPI Narrative LIAN FRYE, is a 58 M who presents to the emergency room at [facility] with complaints of redness and swelling to his left great toe, his left foot and redness streaking up the left lower leg. 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 Patient does not follow-up regularly with a physician, he was diagnosed with diabetes years ago but chose not to go on any medication. Workup in the emergency room included a CBC which showed an elevated white blood cell count of 14.3, sodium was low at 128, creatinine was elevated at 1.37, glucose was elevated at 651, and foot x-ray showed a calcaneal tuberosity spur but no other abnormality. Patient will be admitted to [facility] for cellulitis of the left great toe/foot, he will be treated with IV Zosyn, I will have the wound nurse look at his toe wound tomorrow, I do not anticipate having podiatry involved in the case at this time. [facility] Medical History (Updated 03/09/24 @ 16:15 by Dannielle River) Alcohol abuse Diabetes Dyspnea History of stress test Home Medications NK 03/09/24 [History Last Taken Unknown] Allergy/AdvReac Type Severity Reaction Status Date / Time No Known Allergies Allergy Verified 03/09/24 10:14 Social History Smoking Status: Never smoker ROS ROS Narrative Patient complains of left great toe redness and swelling over the last several days along with redness of the left foot over its dorsum and streaking redness up into the left lower leg. Constitutional Constitutional: Denies anorexia, change in weight, chills, fatigue, fever(s), night sweats or weakness Eyes Eyes: Denies blurry vision, change in vision, discharge from eye(s) or eye pain Cardiovascular Cardiovascular: Denies chest pain, claudication, edema or palpitations Respiratory/Chest Respiratory/Chest: Denies cough, hemoptysis, shortness of breath at rest or shortness of breath with exertion Gastrointestinal Gastrointestinal: Denies abdominal pain, constipation, diarrhea, hematemesis, hematochezia, melena, nausea or vomiting Genitourinary Genitourinary: Denies dysuria, hematuria, urinary frequency, urinary hesitancy, urinary incontinence or urinary urgency Musculoskeletal Musculoskeletal: Denies back pain, joint pain, joint stiffness, joint swelling, myalgias or neck pain Neurologic Neurologic: Denies abnormal gait, abnormal speech, dizziness, focal weakness, headache(s), loss of vision, numbness, other visual disturbances, paresthesias, syncope or tingling Psychiatric Psychiatric: Denies anxiety, cognitive impairment, depression, irritability, mood swings or suicidal ideation Endocrine Endocrinology: Denies change in body appearance, cold intolerance, excessive sweating, heat intolerance, polydipsia or polyuria Hematologic/Lymphatic Hematologic/Lymphatic: Denies none, anemia, easy bleeding, easy bruising or lymphadenopathy Allergic/Immunologic Allergic/Immunologic: Denies rhinitis, urticaria, eczemia or asthma Vital Signs Vital Signs Vital Signs: 03/09/24 10:15 03/09/24 11:16 03/09/24 13:43 Temperature 97 F L 97.6 F L 98.1 F Temperature Source Temporal Oral Temporal Pulse Rate 112 H 89 84 Respiratory Rate 18 20 H 18 Respiratory Effort Respiratory Depth Respiratory Pattern Blood Pressure 137/77 H 148/67 H 112/64 Blood Pressure Mean 97 94 80 Blood Pressure Source Blood Pressure Position Blood Pressure Location Pulse Ox 98 97 96 Oxygen Delivery Method Room Air Room Air Room Air 03/09/24 14:24 03/09/24 15:00 03/09/24 17:00 Temperature 98.1 F 98.0 F 98.1 F Temperature Source Temporal Oral Pulse Rate 92 91 93 Respiratory Rate 15 15 14 Respiratory Effort Respiratory Depth Respiratory Pattern Blood Pressure 138/62 H 105/91 H 136/81 H Blood Pressure Mean 87 95 99 Blood Pressure Source Monitor Blood Pressure Position Sitting Blood Pressure Location Left Arm Pulse Ox 99 99 100 Oxygen Delivery Method Room Air Room Air 03/09/24 16:03 Temperature Temperature Source Pulse Rate Respiratory (more content not included)... Normal [facility] Hematocrit Auto (Bld) [Volum e fraction]Ordered By: ED PROVIDER on 03-09-2024 Hematocrit (Bld) [Volume fraction] 43.9 % 40-54 [facility] Immature granulocytes/100 WB C Auto (Bld)Ordered By: ED PROVIDER on 03-09-2024 Immature granulocytes/100 WBC (Bld) 0.300 % 0.0-0.9 [facility] Comment on above: IG% - Immature Granu locytes (promyelocytes, myelocytes and metamyelocytes) > 1% indicates that a LEFT SHIFT is Present. Laboratory - Chemistry and C hemistry - challengeOrdered By: Reba Soto on 03-09-2024 CO2 [Moles/Vol] 29.0 mmol/L 21.0-32.0 [facility] Urea nitrogen/Creatinine [Mass ratio] 11.7 mg/mg 10-20 [facility] - Hematology and Cell countsOrdered By: ED PROVIDER on 03-09-2024 MCH (RBC) [Entitic mass] 30.5 pg 27.0-32.0 [facility] MCHC (RBC) [Mass/Vol] 34.4 g/dL 32-36 [facility] Nucleated RBC/100 WBC (Bld) [Ratio] 0 % 0-5 [facility] Platelet mean volume (Bld) [Entitic vol] 11.1 fL 6.2-12.0 [facility] Platelets (Bld) [#/Vol] 263 10*3/uL 150-450 [facility] No Panel InformationOrdered By: Reba Soto on 03-09-2024 C-Reactive Protein Extended Range 67.60 mg/L 0.0-3.0 [facility] Comment on above: C-Reactive Protein ( CRP) provides useful information for thediagnosis, therapy and monitoring of inflammatory processesand associated diseases. For the evaluation of Relative Riskfor Cardiovascular Disease, a High Sensitivity CRP (HSCRP)should be ordered. Estimated Creatinine Clearance Calc 71.74 ml/min [facility] Estimated GFR (MDRD) Amer 69 mL/min >60 [facility] Comment on above: GFR Calc Estimated GFR (MDRD) Non-Af Amer 57 mL/min >60 [facility] Comment on above: Non- GFR Calc RBC Auto (Bld) [#/Vol]Ordere d By: ED PROVIDER on 03-09-2024 RBC (Bld) [#/Vol] 4.95 10*6/uL 4.6-6.2 [facility] Serum or plasma calcium bulmaro urement (mass/volume)Ordered By: Reba Soto on 03-09-2024 Calcium [Mass/Vol] 9.6 mg/dL 8.5-10.1 [facility] Serum or plasma creatinine m easurement (mass/volume)Ordered By: Reba Soto on 03-09-2024 Creatinine [Mass/Vol] 1.37 mg/dL 0.70-1.30 [facility] Comment on above: The validity of the calculated GFR & GFRAA in patients over 70 years has not been determined. Clinical correlation is essential. Serum or plasma urea nitroge n measurement (mass/volume)Ordered By: [facility] S[facility] on 03-09-2024 Urea nitrogen [Mass/Vol] 16 mg/dL 7-18 [facility] Thin prep Papanicolaou smear with manual screeningOrdered By: [facility] S[facility] on 03-09-2024 Thin prep Papanicolaou smear with manual screening 5 5-15 [facility] Vital Signs Date Time Vital Sign Value Performing Clinician Yanirai millicent 03-09-2024 15:00-0400 Body temperature 98 [degF] [facility] 03-09-2024 15:00-0400 Diastolic blood pressure 91 mm[Hg] [facility] 03-09-2024 15:00-0400 Heart rate 91 /min [facility] 03-09-2024 15:00-0400 Respiratory rate 15 /min [facility] 03-09-2024 15:00-0400 SaO2% (BldA) [Mass fraction] 99 % [facility] 03-09-2024 15:00-0400 Systolic blood pressure 105 mm[Hg] [facility] 03-09-2024 10:15-040 Body height 180.34 cm [facility] 03-09-2024 10:15-0400 Body mass index (BMI) [Ratio] 30.8 kg/m2 [facility] 03-09-2024 10:15040 Body weight 100.19 kg [facility] Encounters Encounter Date Encounter Type Care Provider Facility Start: 10-01-2024 End: 10-05-2024 ambulatory SHELBI MARIA R SOLAR POOL HEATING INSTALLER-STAFF SONOGRAPHER Facility:[facility] Start: 10-01-2024 End: 10-05-2024 Outreach Lab SHELBI MORATAYAETLER SOLAR POOL HEATING INSTALLER-STAFF SONOGRAPHER [facility] Start: 08-08-2024 ambulatory SHELBI MORATAYAETLER Facilit y:[facility] Start: 04-23-2024 End: 04-23-2024 ambulatory No Primary Care Physician Facility:[facility] Start: 03-11-2024 ambulatory No Primary Car e Physician Facility:[facility] Start: 03-09-2024 ambulatory No Primary Car e Physician Facility:[facility] Start: 03-09-2024 End: 03-12-2024 Evaluation and management of inpatient [facility] Work Phone: Procedures Date Procedure Procedure Detail Performing Clinician Start: 03-09-2024 X-ray of both feet Plan of Treatment Date Care Activity Detail Author Start: 03-09-2024 Bacteria identified in Blood by Culture Blood Culture [facility] Start: 03-09-2024 Verification routine [facility] Start: 03-09-2024 Hospital admission, emergency, from emergency room, medical nature [facility] Start: 03-09-2024 Admission procedure [facility] Start: 03-09-2024 End: 03-09-2024 Blood culture [facility] Patient referral [facility] Work Phone: Payers Date Payer Category Payer Self-pay [id number] 2024 Unknown [id number] 1965 Unknown [id number] Unknown SRIKANTH [id number] Unknown [facility] [id number] Unknown [id number] Unknown [id number] Unknown [id number] Unknown [id number] Unknown [id number] Unknown [id number] Unknown [id number] Unknown [id number] Social History Date Type Detail Facility Start: [facility]09-[facility]24 [facility] Start: 1965 Sex Assigned At Male [facility] Start: 05-27-2024 Tobacco smoking status Never s moked tobacco (finding) [facility] Medical Equipment Procedure Code Equipment Code Equipment Origin al Text Equipment Identifier Dates 3, Oral, PRN Insomnia, 0 Refill(s) Start: 05-27-2024 Discharge summary note 03-12-2024 Note Date & Type Note Facility 03-12-2024 Note [facility] Medical Records Department [facility] [place] [address] [place] [address] Discharge Summary 03/12/24 1211 MR#: [id number] Acct: [id number] Name: LIAN FRYE Rep #: [id number] : 1965 58 From: Lian Morin DO PCP: Care Physician,No Primary Status:DIS IN Location: [facility] BO000-6 Providers Date of Admission: 03/09/24 Date of Discharge: 03/12/24 Primary Care Physician: Kathleen Primary Care Phys Consultations 03/09/24 16:01 Consult: Onc/Wound/entrepreneurship program director Routine Comment: Reason for Consult:: left great toe wound 03/10/24 08:33 Consult: Podiatry Routine Consulting Provider: Jonah Borjas Reason for Consult: left great toe wound EMERGENT Consult: No MD Notified: Yes Date Notified: 03/10/24 Time Notified: 08:33 Method of Notification: Text Reason For Visit: CELLULITIS OF THE LEFT GREAT TOE, UNCONTROLED TYPE Diagnosis Discharge Diagnosis (1) Other acute osteomyelitis, left ankle and foot: Status: Acute Code(s): M86.172 - Other acute osteomyelitis, left ankle and foot (2) Type 2 diabetes mellitus with diabetic polyneuropathy: Status: Acute Code(s): E11.42 - Type 2 diabetes mellitus with diabetic polyneuropathy Qualifiers: Diabetes mellitus procurement consultant insulin use: without procurement consultant use Qualified Code(s): E11.42 - Type 2 diabetes mellitus with diabetic polyneuropathy Plan 1. Cellulitis and osteomyelitis of the left great toe/foot with extension into the left lower leg- patient will be maintained on IV Zosyn, podiatry is participating in his care, again patient underwent a left hallux amputation at the metatarsal phalangeal joint today. #2 uncontrolled type 2 diabetes due to noncompliance with medical regimen-patient was placed on insulin, he will be seen by the dietitian #3 cardiac arrhythmia-multifocal PVCs-patient will be monitored on telemetry #4 elevated creatinine probably secondary to dehydration-patient will receive fluids and labs will be rechecked tomorrow #5 hyperlipidemia-patient will be placed on Lipitor Total clinical time spent by myself addressing the patient's medical issues, reviewing all the data, and collaborating with patient's care team: 35 minutes Medications at Discharge Home Medications amoxicillin 875 mg-potassium clavulanate 125 mg tablet 1 tab PO BID #20 tabs 03/12/24 aspirin 81 mg tablet,delayed release 81 mg PO DAILY #30 tabs 03/12/24 atorvastatin 40 mg tablet 40 mg PO QHS #30 tabs 03/12/24 insulin glargine-yfgn 100 unit/mL (3 mL) subcutaneous pen 20 unit (0.2 mL) subcut BID #15 mL 03/12/24 insulin lispro 100 unit/mL subcutaneous pen (Humalog KwikPen (U-100) Insulin) 12 unit (0.12 mL) subcut TIDAC #15 mL 03/12/24 Hospital Course Operations - (Partial amputation of the left hallux due to osteomyelitis and cellulitis) Procedures None Summary of Care Provided Minutes Spent on Discharge: 31 Hospital Course: This 58-year-old white male was seen in the emergency room at [facility], he had redness and swelling to his left great toe, he had pulled his great toenail off approximately 3 weeks prior and was 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 Examination of the area in the emergency room showed the left great toe to be reddened, there is some streaking up the patient's left foot, and patient's blood sugar was elevated. At 651. Patient's creatinine was also elevated at 1.37, patient was admitted to [place] [address] for cellulitis of the left foot, IV antibiotics were administered and he was placed on insulin for his diabetes. He had known he was diabetic for several years but had been noncompliant with seeking treatment. Patient was seen by podiatry, it was felt that the patient had osteomyelitis in the left great toe and he went for a partial left great toe amputation, there were no complications from his surgery. Patient's blood sugars came under better control with the use of insulin. On 03/12/2024, patient was seen and examined: On examination he appeared in good health and spirits. Vital signs as documented. Skin warm and dry and without overt rashes. Neck without JVD, neck was supple, trachea midline, thyroid was normal. Lungs clear bilaterally, normal air movement was noted. Heart exam notable for regular rhythm, normal sounds and absence of murmurs, rubs or gallops. Abdomen unremarkable and without evidence of organomegaly, masses, or abdominal aortic enlargement. Bowel sounds are present, abdomen is not distended. Extremities-left great toe wound appears to be healing adequately at his amputation site with minimal redness and no discharge. Neuro: Cranial nerves II through XII are grossly intact, no focal motor deficits were noted, sensation to light touch and pinprick intact, motor exam 5/5 throughout. Psych: Patient is alert and oriented x3, he does not appear anxi (more content not included)... [facility] Consultation note 03-10-2024 Note Date & Type Note Facility 03-10-2024 Note [facility] Medical Records Department [address] [place] [address] Consultation 03/10/24 1055 MR#: [id number] Acct: [id number] Name: LIAN FRYE Rep #: [id number] : 1965 58 From: Jonah Borjas DPM PCP: Care Physician,No Primary Status:ADM IN Location: [facility] Assessment Plan Assessment/Plan (1) Other specified peripheral vascular diseases: PLAN: Exam performed radiograph negative for obvious osteomyelitis MRI ordered for further work up of osteomyelitis Arterial studies ordered for vascular base line I have recommended left hallux amputation - will plan for tomorrow 03/11/24. recommend betadine/DSD daily recommend heel weightbearing in surgical shoe to heel patient receiving iv vanc/zosyn will follow closely will hold heparin at midnight (2) Type 2 diabetes mellitus with diabetic polyneuropathy: (3) Other acute osteomyelitis, left ankle and foot: (4) Non-pressure chronic ulcer of other part of left foot with necrosis of bone: HPI Consult Data Date of Consult: 03/10/24 HPI Narrative HPI Narrative: LIAN FRYE, is a 58 M who presents with left hallux infection in setting of poorly controlled type II diabetes. Patient notes wound to left hallux, progressively worsening and darkening with foul smelling drainage. Patient denies pain to left hallux. Patient denies fever, chills, nausea, vomiting, chest pain, calf pain or shortness of breath. Patient denies any treatment to wound. Patient denies taking any medication for his diabetes. Patient has no other complaints. [facility] Medical History (Updated 03/10/24 @ 11:[address] Jonah Borjas, SAVANAH) Dyspnea History of stress test Alcohol abuse Diabetes Home Medications ???Medication ???Instructions ???Recorded ???Last Taken ???Type NK 03/09/24 Unknown History Allergy/AdvReac Type Severity Reaction Status Date / Time No Known Allergies Allergy Verified 03/09/24 10:14 Social History Smoking Status: Never smoker ROS Constitutional Constitutional: Denies change in weight, chills or headache(s) Eyes Eyes: Denies acute decrease in peripheral vision, change in eye color or change in vision ENT HEENT: Denies bleeding gums, change in voice or ear pain Cardiovascular Cardiovascular: Denies abdominal edema, abdominal pain or chest pain at rest Respiratory/Chest Respiratory/Chest: Denies change in phlegm color, chest congestion or dyspnea Physical Exam Narrative Vascular: Atrophic skin changes, shiny taut appearance with absent pedal hair gorwth to biltateral legs. Palpable DP/PT pulses. Wamrth and pitting edema to left foot. Neurologic: light touch/protective sensation absent to bilateral feet. dermatologic: full thickness wound to dorsal left hallux with full thickness tissue necrosis to bone. significant wound drainage noted with malodor, erythema, edema, warmth. appears limited to left hallux. Musculoskeletal: no wound forming deformity noted. muscular strength full. no sign of dvt bilaterally. Lab / Micro Data 03/10/24 06:10 03/10/24 06:10 Labs: Laboratory Results - last 24 hr 03/09/24 11:11: WBC 14.3 H, RBC 4.95, Hgb 15.1, Hct 43.9, MCV 88.7, MCH 30.5, MCHC 34.4, RDW Std Deviation 38.9, RDW Coeff of Weston 12.0, Plt Count 263, MPV 11.1, Immature Gran % (Auto) 0.300, Neut % (Auto) 86.4 H, Lymph % (Auto) 7.5 L, Atlantic % (Auto) 5.4, Eos % (Auto) 0.1, Baso % (Auto) 0.3, A bsolute Neuts (auto) 12.4 H, Absolute Lymphs (auto) 1.07, Nucleated RBC % 0, ESR 8, Sodium 128 L, Potassium 4.4, Chloride 94 L, Carbon Dioxide 29.0, Anion Gap 5, BUN 16, Creatinine 1.37 H, Estim Creat Clear Calc 71.74, Est GFR (MDRD) Af Amer 69, Est GFR (MDRD) Non-Af 57 L, BUN/Creatinine Ratio 11.7, Glucose 651 H*, Calcium 9.6, C-React Prot Ext Range 67.60 H 03/09/24 15:37: POC Glucose 189 H 03/09/24 16:55: POC Glucose 142 H 03/09/24 21:06: POC Glucose 221 H 03/10/24 06:10: WBC 11.3 H, RBC 4.76, Hgb 14.4, Hct 41.8, MCV 87.8, MCH 30.3, MCHC 34.4, RDW Std Deviation 38.5, RDW Coeff of [place]on 11.9, Plt Count 255, MPV 11.5, Immature Gran % (Auto) 0.300, Neut % (Auto) 74.8 H, Lymph % (Auto) 15.0 L, Atlantic % (Auto) 8.2, Eos % (Auto) 1.4, Baso % (Auto) 0.3, A bsolute Neuts (auto) 8.4 H, Absolute Lymphs (auto) 1.69, Nucleated RBC % 0, Sodium 138, Potassium 3.7, Chloride 106, Carbon Dioxide 26.0, Anion Gap 6, BUN 20 H, Creatinine 1.38 H, Estim Creat Clear Calc 71.86, Est GFR (MDRD) Af Amer 68, Est GFR (MDRD) Non-Af 56 L, BUN/Creatinine Ratio 14.5, G lucose 153 H, Calcium 8.8, Triglycerides 102, Cholesterol 213 H, LDL Cholesterol 135 H, VLDL Cholesterol 20, HDL Cholesterol 58 03/10/24 07:40: POC Glucose 162 H 03/10/24 07:45: S.aureus Protein A PCR NEGATIVE, MRSA (PCR) Negative Imaging Radiology Impression Foot X-Ray 03/09/24 11:41 IMPRESSION: Tiny posterior calcaneal tuberosity spur. Electronically Signed (more content not included)... [facility] Discharge summary 03-09-2024 Note Date & Type Note Facility 03-09-2024 Discharge summary Note Date/Time March 09, 2024 11:[facility]am [facility] [facility] Medical Records Department [address] [place] [address] Emergency Department Summary 03/09/24 MR#: [id number] Acct: [id number] Name: LIAN FRYE Rep #:[id number] : [id number] From: Reba Soto DO PCP: Care Physician,No Primary Status :REG ER Location: ED HPI History of Present Illness Chief Complaint: Cellulitis Detail of Chief Complaint: Cellulitis to left leg Informant: patient Narrative Narrative: Patient presents to the emergency department complaint of redness and swelling to his left leg. Patient tells me that 2 months ago he came home from work and noted some blood on his sock and when he pulled his sock off his toenail was barely hanging on so he twisted it and pulled it off. 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 Saucedo for him and keep it clean. About a week ago he started noticing some redness up the foot and up the leg. He was advised to come in and get evaluated. Patient tells me that he has not seen a doctor in over 20 years. 20 years ago he was told he was diabetic and doctor wanted to put him on insulin and he never went back. Denies any other medical history. He has had some chills but no fever. PFSH PFSH Home Medications NK 03/09/24 [History Last Taken Unknown] Allergy/AdvReac Type Severity Reaction Status Date / Time No Known Allergies Allergy Verified 03/09/24 10:14 Social History Smoking Status: Never smoker ROS ROS ED Review of Systems ROS Unobtainable: other Constitutional Constitutional ED: Reports lethargy; Denies chills, fever(s), sweats or weight loss Eyes Eyes: Denies blurry vision, change in vision or diplopia ENT ENT ED: Denies rhinorrhea or sore throat Cardiovascular Cardiovascular: Denies chest pain, orthopnea or racing heartbeat Respiratory/Chest Respiratory/Chest: Denies cough, dyspnea, dyspnea on exertion, orthopnea or sputum Gastrointestinal Gastrointestinal: Denies abdominal pain, diarrhea, nausea or vomiting Genitourinary Genitourinary ED: Denies dysuria, hematuria or urinary frequency Musculoskeletal Musculoskeletal: Reports other Details: Right foot redness and swelling ; Denies arthralgias, back pain, myalgias or neck pain Integumentary Denies abscess, Abrasions or rash Neurologic Neurologic: Denies headache(s) or weakness Psychiatric Psychiatric: Denies anxiety, depression or suicidal thoughts Endocrine Endocrinology: Denies polydipsia, polyphagia or polyuria Hematologic/Lymphatic Hematologic/Lymphatic: Denies easy bleeding, easy bruising or lymphadenopathy Allergic/Immunologic Allergic/Immunologic ED: Denies mouth swelling, tongue swelling or urticaria EXAM Physical Exam Const Vital Signs: 03/09/24 10:15 03/09/24 11:16 Temperature 97 F L 97.6 F L Temperature Source Temporal Oral Pulse Rate 112 H 89 Respiratory Rate 18 20 H Blood Pressure 137/77 H 148/67 H Blood Pressure Mean 97 94 Pulse Ox 98 97 Oxygen Delivery Method Room Air Room Air Positive well nourished and well developed General Appearance ED: well developed and NAD HEENT Reports TM's clear and moist mucous membranes normocephalic and atraumatic; Negative for trauma or tenderness Tympanic Membrane ED: Yes TM's clear Eyes PERRL and EOMs intact bilaterally General Eye ED: Negative for pale conjunctiva or scleral icterus Neck no lymphadenopathy, supple and no JVD General: Negative for tenderness Chest Wall inspection of chest normal and palpation of chest normal Chest: Negative for tenderness Resp normal respiratory effort and clear to auscultation bilaterally Effort and Inspection: Negative for respiratory distress or pain with movement Auscultation: Negative for rhonchi, wheezes or diminished lung sounds Cardio regular rate, regular rhythm, S1 normal heart sound, S2 normal heart sound and no murmurs Peripheral Pulses: pulses 2+ throughout GI normal to inspection, nondistended, normoactive bowel sounds, soft to palpation,non-tender, non-distended and no masses Back/Spine no CVA tenderness and no thoracic nor lumbar tenderness Extremity Extremity Narrative: Right lower extremity-patient has a missing left great toenail. He has diffuse erythema to the toe with tenderness to palpation. No significant drainage noted. Does have cellulitic changes to the dorsum of the foot and extending up the anterior rhodes. General Extremety ED: Negative for edema General Extremity: Negative for edema Neuro oriented x3, CN's II-XII intact bilaterally, no sensory deficits noted and gait normal Sensorium / Orientation: awake, alert, oriented to person, oriented to place andoriented to time Motor Exam: strength 5/5 throughout and strength abnormal Psych mental status grossly normal Skin no rashes or lesions noted and no wounds MDM MDM MDM Narrative Medical decision making narrative: Patient presents to the emergency department with redness and swelling to the left great toe and lower extremity. Thinks he might be diabetic. IV line established. CBC with differential obtained for white count of 14.3 with hemoglobin 15 and platelet count of 263. Patient was started on Zosyn and vancomycin IV empirically. I ordered an x-ray. Sed rate and CRP also ordered and pending. Patient has an elevated glucose of 651. Sodium 128. BUN 16 and creatinine 1.37. C-reactive protein was elevated at 67.6. Sed rate was normal at 8. X-ray of the left foot obtained showed no evidence for osteomyelitis or gas within the tissues. Patient started on insulin subcu I gave him 20 units regular. Case discussed with hospitalist will evaluate patient for admission. Lab Data Attestation: I reviewed the patient's lab results. Labs: Laboratory Results - last 24 hr 03/09/24 11:11 WBC 14.3 H RBC 4.95 Hgb 15.1 Hct 43.9 MCV 88.7 MCH 30.5 MCHC 34.4 RDW Std Deviation 38.9 RDW Coeff of [place]on 12.0 Plt Count 263 MPV 11.1 Immature Gran % (Auto) 0.300 Neut % (Auto) 86.4 H Lymph % (Auto) 7.5 L [place] % (Auto) 5.4 Eos % (Auto) 0.1 Baso % (Auto) 0.3 Absolute Neuts (auto) 12.4 H Absolute Lymphs (auto) 1.07 Nucleated RBC % 0 ESR 8 Sodium 128 L Potassium 4.4 Chloride 94 L Carbon Dioxide 29.0 Anion Gap 5 BUN 16 Creatinine 1.37 H Estim Creat Clear Calc 71.74 Est GFR (MDRD) Af Amer 69 Est GFR (MDRD) Non-Af 57 L BUN/Creatinine Ratio 11.7 Glucose 651 H* Calcium 9.6 C-React Prot Ext Range 67.60 H Radiography Diagnostic Testing: Clinical Impression(s) from Imaging Studies Foot X-Ray 03/09/24 11:41 IMPRESSION: Tiny posterior calcaneal tuberosity spur. Electronically Signed: Javier See MD at 12:31 EDT , Three-view x-rays of the left foot obtained interpreted by myself as no evidenceof fracture dislocation or evidence of osteomyelitis or gas in tissues. Radiology in agreement felt there was a posterior calcaneal tuberosity spur. Discharge Plan Triage Chief Complaint: Cellulitis ED Provider: Reba Soto Dx/Rx/DC Orders Clinical Impression: Cellulitis, Hyperglycemia Prescriptions: No Action NK Primary Care Provider: Care Physician,No Primary Referrals: Angelito Mitchell MD [[facility] Staff - Diagnostic Technologist] - Disposition Disposition: [facility] What to do if you have Problems For any increased pain, shortness of breath, bleeding, nausea or vomiting, chestpain, or any unexpected problems, contact your Primary Care Provider. Call [facility] ([phone]) or report to the closest Emergency Room. Call 911 if necessary. 03/09/24 1508 <Electronically signed by Reba Soto DO> Cosigner Signature (if applicable): CC: No Primary Care Physician ~ Signed [facility] Work Phone: Evaluation + Plan note Note Date & Type Note Facility Evaluation + Plan note Future Appointments Appointment Date:10/14/2024 03:30:00 PM Scheduled Provider:SHELBI HECK Location:[facility] Appointment Type:PC [facility] Evaluation note Note Date & Type Note Facility Evaluation note Diagnosis Onset Date Cellulitis acute Hyperglycemia acute [facility] Work Phone: Hospital course Narrative Note Date & Type Note Facility Hospital course Narrative No data available for this section [facility] Discharge instructions Note Date & Type Note Facility Hospital Discharge instructions No data available for this section [facility] Progress note Note Date & Type Note Facility Progress note No data available for this section [facility] Chief Complaint and Reason for Visit Chief Complaint CELLULITIS OF THE LE FT GREAT TOE, UNCONTROLED TYPE Reason for Visit Cellulitis Hyperglycemia Advance Directives No Advanced Directives Records Found Advance Directive Response Recorded Date/ Time Living Will No March 09, 2024 1 1:54am Power of Cook [place] No March 09, 2024 11:54am Summary Purpose Family History No Family History Records Found Additional Source Comments Care Teams (unrecognized sec tion and content) Team Status: Active Member Role Status Dates Dr. Angelito Mitchell MD Family Provider Active No Primary Care Physician Primary Care Provider Active Team Status: Active Member Role Status Dates Dr. Reba Soto , DO Emergency Provider Active No Primary Care Physician Primary Care Provider Active Dr. Lian Morin , DO Admit Provider, Attending Pro vider Active Goals (unrecognized section and content) Goals may be documented in a n alternate section No data available for this section (unrecognized sect ion and content) No Status Records FoundNo Status Records Found INFORMATION SOURCE (unrecogn ized section and content) DATE CREATED AUTHOR 10/09/2024 [facility] DATE CREATED AUTHOR AUTHOR'S RAVINDRAIZ ATION 11/13/2024 [facility] [place] FOR RECORDS PERTAINING TO PATIENTS WHO ARE OR HAVE BEEN ENROLLED IN A CHEMICAL DEPENDENCY/SUBSTANCEABUSE PROGRAM, SOME INFORMATION MAY BE OMITTED. This clinical summary was aggregated from multiple sources. Caution should be exercised in using it in the provision of clinical care. This summary normalizes information from multiple sources, and as a consequence, information in this document may materially change the coding, format and clinical context of patient data. In addition, data may be omitted in some cases. CLINICAL DECISIONS SHOULD BE BASED ON THE PRIMARY CLINICAL RECORDS. [employer] provides no warranty or guarantee of the accuracy or completeness of information in this document.
[2025-10-18 13:20] VITALS: BP 153/93; PULSE 101; RESP 18; O2SAT 100
[2025-10-18 13:27] LABS: Reflex Lactate? Y
--- NOTE | 2025-10-18 20:36 | CASEMGMT ---
Social Work SW met with patient who states he has not been taking his medication as prescribed as he was uncertain if he could afford it. SW printed patients insurance formulary and reviewed with patient. Patient also does not currently have a PCP. [facility] provider list along with Elda oDdge information was given. Patient planned to see physician and get medications filled as ordered. No further needs at this time. Katja Tijerina, BAIL BOND AGENT, ENGRAVER SIGNATURE
== END 2025-10-18 14:59 | disposition home or self-care (01) ==
PROVIDERS: Emergency Provider Student in an Organized Health Care Education/Training Program; Visit Provider Student in an Organized Health Care Education/Training Program
DX: E11.65 Type 2 diabetes mellitus with hyperglycemia (principal); E11.51 Type 2 diabetes mellitus with diabetic peripheral angiopathy without gangrene; Z91.148 Patient's other noncompliance with medication regimen for other reason
CPT/HCPCS: 71046; 80048; 81001; 82010; 82962; 83605; 85025; 87631; 93005; 96360; 96361; 99284; A4216